=== PATIENT | female | born 1985 | race African-American/Black ===

== ENCOUNTER 2018-02-03 10:32 | Emergency (ER) | payer BC ==
[2018-02-03] MEDS ORDERED: NORMAL SALINE 1000 ML 1,000 ML IV ONE (11:28)
[2018-02-03] MEDS ORDERED: ONDANSETRON HCL INJ/PF 4 MG/2 ML SDV IV ONE (11:28)
--- NOTE | 2018-02-03 11:30 | ER Document Report ---
ED Medical Screen (RME) - General Chief Complaint: Vomiting Stated Complaint: VOMITING Time Seen by Provider: 02/03/18 11:24 Notes: a [id number] female presents emergency department stating that she is 7 weeks based off of urine test and is having vomiting and cramping lower abdominal pain. Patient states that she has had hyperemesis in 2 of her prior pregnancies. She feels dehydrated. Denies any vaginal bleeding or dysuria. TRAVEL OUTSIDE OF THE [place] IN LAST 30 DAYS: No - Related Data Allergies/Adverse Reactions: No Known Allergies Allergy (Unverified 02/03/18 10:37) Past Medical History - General Information source: Patient - Social History Chew tobacco use (# tins/day): No Frequency of alcohol use: None Drug Abuse: None Renal/ Medical History: Denies: Hx Peritoneal Dialysis Review of Systems - Review of Systems Gastrointestinal: See HPI Genitourinary: See HPI Female Genitourinary: See HPI Physical Exam - Vital signs Vitals: Temp Pulse Resp BP Pulse Ox 98.9 F 67 16 117/71 100 02/03/18 10:38 02/03/18 10:38 02/03/18 10:38 02/03/18 10:38 02/03/18 10:38 - Notes Notes: Alert, no acute distress Abdomen: Soft, nontender, nondistended Mouth: Oral mucosa is moist Course - Vital Signs Vital signs: Temp Pulse Resp BP Pulse Ox 98.9 F 67 16 117/71 100 02/03/18 10:38 02/03/18 10:38 02/03/18 10:38 02/03/18 10:38 02/03/18 10:38
[2018-02-03 12:40] LABS: APPEARANCE,URINE SLIGHTLY-CLOUDY; BILIRUBIN,URINE NEGATIVE (NEGATIVE); COLOR,URINE AMBER; GLUCOSE, URINE NEGATIVE (NEGATIVE); KETONES,URINE 80 mg/dL (NEGATIVE); LEUKOCYTE ESTERASE,URINE NEGATIVE (NEGATIVE); NITRITE,URINE NEGATIVE (NEGATIVE); PROTEIN,URINE 30 mg/dL (NEGATIVE); URINE SPECIFIC GRAVITY 1.035
[2018-02-03 12:48] LABS: ABSOLUTE EOSINOPHILS # (AUTO) 0.1 10^3/uL (0.0-0.6); ABSOLUTE MONOCYTES (AUTO) 0.5 10^3/uL (0.1-1.4); ABSOLUTE NEUT (AUTO) 3.3 10^3/uL (1.7-8.2); BASOPHILS % (AUTO) 0.7 % (0-2); HEMATOCRIT 41.3 % (36.0-47.0); HEMOGLOBIN 14.1 g/dL (12.0-15.5); LYMPHOCYTES % (AUTO) 34.1 % (13-45); MEAN CORPUSCULAR HEMOGLOBIN 30.1 pg (27.0-33.4); MEAN CORPUSCULAR HGB CONC 34.2 g/dL (32.0-36.0); MEAN CORPUSCULAR VOLUME 88 fl (80-97); PLATELET COUNT 281 10^3/uL (150-450); RED CELL DISTRIBUTION WIDTH 13.3 % (11.5-14.0); SEGMENTED NEUTROPHILS % (AUTO) 55.2 % (42-78); TOTAL CELLS COUNTED % (AUTO) 100 %
[2018-02-03 13:01] LABS: ALANINE AMINOTRANSFERASE 19 U/L (9-52); ALBUMIN 4.8 g/dL (3.5-5.0); ALKALINE PHOSPHATASE 60 U/L (38-126); ANION GAP 12 (5-19); ASPARTATE AMINO TRANSFERASE 16 U/L (14-36); BILIRUBIN,DIRECT 0.3 mg/dL (0.0-0.4); BILIRUBIN,TOTAL 1.2 mg/dL (0.2-1.3); BLOOD UREA NITROGEN 9 mg/dL (7-20); CALCIUM 9.9 mg/dL (8.4-10.2); CARBON DIOXIDE 23 mmol/L (22-30); CHLORIDE 103 mmol/L (98-107); GLUCOSE 88 mg/dL (75-110); SODIUM 137.7 mmol/L (137-145); TOTAL PROTEIN 8.1 g/dL (6.3-8.2)
--- NOTE | 2018-02-03 13:23 | RADIOLOGY REPORT (SQ) ---
EXAM DESCRIPTION: U/S OB TRANSVAG W/DOPPLER COMPLETED DATE/TIME: 02/03/2018 12:57 pm REASON FOR STUDY: cramping lower abd pain, r/o ectopic COMPARISON: None. TECHNIQUE: Endovaginal static and realtime grayscale images acquired of the pelvis. Additional selec fabiano spectral and color Doppler images recorded. All images stored on PACs. C12/11/2017 CLINICAL DATES: Estimated age 7 weeks 5 days based on last menses LIMITATIONS: Nonvisualization left adnexa due to bowel gas and limited acoustic window FINDINGS: FETUS: Single Living intrauterine . ULTRASOUND EGA: 6 weeks 1 day ULTRASOUND PATEL: 09/28/2018 EFW: Not applicable less than 20 weeks. CRL: 0.47 cm FHR: 105 beats per minute. SURVEY: Too early to assess. AMNIOTIC FLUID: Adequate amount. PLACENTA: Not yet developed due to early gestation. SUBCHORIONIC BLEED: No SIZE OF BLEED: Not applicable. UTERUS: No masses. No anomalies. Uterus is 10 x 6 x 7 cm in size CERVICAL LENGTH: 3.5 cm in length Closed. RIGHT ADNEXA: Normal ovary with normal vascular flow. Right ovary 2.4 x 2.1 x 1.7 cm in size. No adnexal free fluid. No adnexal masses. LEFT ADNEXA: Not well seen due to adnexal bowel gas. FREE FLUID: None. OTHER: No other significant finding. IMPRESSION: LIVING INTRAUTERINE . EGA 6 weeks 1 day Trimester of : First - 0 to 13 weeks. TECHNICAL DOCUMENTATION: JOB ID: [id number] [employer]- All Rights Reserved Reading location - IP/workstation name: [email or web address]
[2018-02-03] MEDS ORDERED: DEXTROSE 5%-1/2 NORMAL SALINE 500 ML IV ONE (13:55)
[2018-02-03] MEDS ORDERED: PYRIDOXINE HCL 50 MG TABLET PO ONE (13:56)
--- NOTE | 2018-02-03 13:59 | ER Document Report ---
ED General - General Chief Complaint: Vomiting Stated Complaint: VOMITING Time Seen by Provider: 02/03/18 11:24 TRAVEL OUTSIDE OF THE [place] IN LAST 30 DAYS: No - HPI Patient complains to provider of: Nausea vomiting Onset: Other - This 32-year-old female presents for evaluation of persistent vomiting in the setting of . She has a history of previous episodes of hyperemesis gravidarum which twice has required her to be hospitalized in the past. She states that she is used her standard home medications including Zofran as well as likely just and Phenergan without any improvement in her symptoms. She is only been able to sip small volumes of fluids has not been able to keep anything down making her concerned she is getting dehydrated. - Related Data Allergies/Adverse Reactions: No Known Allergies Allergy (Unverified 02/03/18 10:37) Past Medical History - General Information source: Patient - Social History Smoking Status: Never Smoker Chew tobacco use (# tins/day): No Frequency of alcohol use: None Drug Abuse: None Family History: None Patient has suicidal ideation: No Patient has homicidal ideation: No Renal/ Medical History: Denies: Hx Peritoneal Dialysis Review of Systems - Review of Systems -: Yes All other systems reviewed and negative Physical Exam - Vital signs Vitals: Temp Pulse Resp BP Pulse Ox 98.9 F 67 16 117/71 100 02/03/18 10:38 02/03/18 10:38 02/03/18 10:38 02/03/18 10:38 02/03/18 10:38 Interpretation: Normal - General General appearance: Appears well, Alert - HEENT Head: Normocephalic, Atraumatic Eyes: Normal Pupils: PERRL - Respiratory Respiratory status: No respiratory distress Chest status: Nontender Breath sounds: Normal Chest palpation: Normal - Cardiovascular Rhythm: Regular Heart sounds: Normal auscultation Murmur: No - Abdominal Inspection: Normal Distension: No distension Bowel sounds: Normal Tenderness: Nontender Organomegaly: No organomegaly - Back Back: Normal, Nontender - Extremities General upper extremity: Normal inspection, Nontender, Normal color, Normal ROM, Normal temperature General lower extremity: Normal inspection, Nontender, Normal color, Normal ROM, Normal temperature, Normal weight bearing. No: Georges's sign - Neurological Neuro grossly intact: Yes Cognition: Normal Orientation: AAOx4 [place] Coma Scale Eye Opening: Spontaneous Tc Coma Scale Verbal: Oriented [place] Coma Scale Motor: Obeys Commands [place] Coma Scale Total: 15 Speech: Normal Motor strength normal: LUE, RUE, LLE, RLE Sensory: Normal - Psychological Associated symptoms: Normal affect, Normal mood - Skin Skin Temperature: Warm Skin Moisture: Dry Skin Color: Normal Course - Re-evaluation Re-evalutation: This woman with a past medical history significant for hyperemesis gravidarum in the past requiring hospitalization. She through triage had labs ordered as well as antiemedics ordered and fluids initiated. On evaluation the patient is a benign abdominal examination. She does demonstrate some ketosis in her urine. Suggested that she could be developing dehydration though she otherwise is well-appearing with stable vital signs. She was encouraged to try to drink in the emergency department after the administration of antiemetics and she had the beverage sit next to her. States she did not really feel like drinking anything. She was given extra fluids thereafter, again she was encouraged to try and drink. She had no active episodes of emesis under my care in the emergency department and after a period of observation it was deemed appropriate for her to undergo discharge. We did discuss appropriate use of antiemetics in and the safe algorithm for the use thereof, she is to take that likely just as directed followed thereafter as spelled out in her discharge instructions per the recommendation of a cog. At the time of discharge her abdominal examination was benign she was well- appearing and able to tolerate p.o. - Vital Signs Vital signs: Temp Pulse Resp BP Pulse Ox 98.4 F 65 20 112/63 100 02/03/18 16:50 02/03/18 16:50 02/03/18 16:50 02/03/18 16:50 02/03/18 16:50 - Laboratory Result Diagrams: 02/03/18 12:34 02/03/18 12:34 Laboratory results interpreted by me: 02/03/18 02/03/18 12:08 12:34 Beta HCG, Quant 54488.00 H Urine Protein 30 H Urine Ketones 80 H Urine Urobilinogen 2.0 H Discharge - Discharge Clinical Impression: Hyperemesis, Nausea Vomiting Qualifiers: Vomiting type: unspecified Vomiting Intractability: non-intractable Nausea presence: with nausea Qualified Code(s): R11.2 - Nausea with vomiting, unspecified Condition: Good Disposition: HOME, SELF-CARE Additional Instructions: You were seen today in the emergency department for your recurrent vomiting. You had evaluation including labs and ultrasound etc. Your ultrasound shows a 6-week . You should use diclegis or Unisom and B6 every day. Do not miss any days. If you continue to have vomiting thereafter you can use diphenhydramine (Benadryl) 3 times daily as needed 25 mg. If that does not work you can use the Phenergan suppositories as needed knowing that they may make you sleepy. You should then use Zofran if none of these medications have worked for your nausea. Call your chemical manager tomorrow for an appointment. Return to the emergency room in case of worsening fevers, chills, abdominal pain or inability to eat and drink.
[2018-02-03 16:57] VITALS: BP 112/63
== END 2018-02-03 16:57 | disposition home or self-care (01) ==
LOC: ER 10:32
DX: O21.0 Mild hyperemesis gravidarum (principal); Z3A.01 Less than 8 weeks gestation of pregnancy
CPT/HCPCS: 99284; 96361; 96374; 86900; 86901; 36415; 84702; 85025; 80053; 81001; 76817; 93976; J3490; J2405; J7070; J7030

== ENCOUNTER 2018-02-04 16:25 | Observation (INO) | payer BC ==
[2018-02-04] MEDS ORDERED: DEXTROSE 50%-WATER 25 GM/50 ML DISP.SYRIN IV PRN ×2 (16:54)
[2018-02-04] MEDS ORDERED: GLUCAGON,HUMAN RECOMB 1 MG INJ SUBCUT PRN (16:54)
[2018-02-04] MEDS ORDERED: DEXTROSE 40% GEL 15 GM TUBE PO PRN ×2 (16:54)
[2018-02-04] MEDS ORDERED: ONDANSETRON HCL INJ/PF 4 MG/2 ML SDV IV ONE (17:30)
[2018-02-04] MEDS ORDERED: DEXAMETHASONE SOD PHOSPHATE INJ 4 MG/1 ML VIAL IV ONE (17:30)
[2018-02-04] MEDS ORDERED: PROMETHAZINE HCL INJ 25 MG/1 ML VIAL IV ONE (17:30)
[2018-02-04] MEDS ORDERED: RINGERS SOLUTION,LACTATED 1,000 ML IV ONE ×2 (17:30→18:00)
[2018-02-04] MEDS ORDERED: PROMETHAZINE HCL INJ 25 MG/1 ML VIAL IV PRN (18:03)
[2018-02-04] MEDS ORDERED: METOCLOPRAMIDE HCL INJ/PF 10 MG/2 ML SDV IV PRN (18:04)
[2018-02-04 18:06] LABS: HEMATOCRIT 38.1 % (36.0-47.0); HEMOGLOBIN 13.2 g/dL (12.0-15.5); MEAN CORPUSCULAR HEMOGLOBIN 30.1 pg (27.0-33.4); MEAN CORPUSCULAR HGB CONC 34.7 g/dL (32.0-36.0); MEAN CORPUSCULAR VOLUME 87 fl (80-97); PLATELET COUNT 237 10^3/uL (150-450); RED BLOOD COUNT 4.41 10^6/uL (3.72-5.28)
[2018-02-04 18:51] LABS: ALANINE AMINOTRANSFERASE 11 U/L (9-52); ALBUMIN 4.3 g/dL (3.5-5.0); ALKALINE PHOSPHATASE 53 U/L (38-126); ANION GAP 15 (5-19); ASPARTATE AMINO TRANSFERASE 13 U/L (14-36); BILIRUBIN,DIRECT 0.3 mg/dL (0.0-0.4); BILIRUBIN,TOTAL 1.4 mg/dL (0.2-1.3); BLOOD UREA NITROGEN 8 mg/dL (7-20); CALCIUM 9.3 mg/dL (8.4-10.2); CARBON DIOXIDE 20 mmol/L (22-30); CHLORIDE 104 mmol/L (98-107); GLUCOSE 78 mg/dL (75-110); POTASSIUM 4.2 mmol/L (3.6-5.0); SODIUM 138.7 mmol/L (137-145); TOTAL PROTEIN 7.3 g/dL (6.3-8.2)
--- NOTE | 2018-02-04 21:51 | PDOC H&P ---
History of Present Illness Admission Date/PCP: 02/04/18 16:25 Patient complains of: persistant nausea and vomitting History of Present Illness: TORSTEN FORMAN is a 32 year old with an intrauterine at 6-3/7 weeks. Patient was seen in the office today complaining of persistent nausea and vomiting. Patient stated that she has lost 10 pounds. Patient stated that she had an extensive nausea and vomiting with her first and lost 40 po unds. Past Medical History Gynecological Infection: No 1 Delivery: Spontaneous Vaginal Delivery 2 Delivery: Spontaneous Vaginal Delivery Past Surgical History Past Surgical History: Reports: None Social History Smoking Status: Never Smoker Frequency of Alcohol Use: None Hx Recreational Drug Use: No Drugs: None Hx Prescription Drug Abuse: No Family History Family History: Reviewed & Not Pertinent Parental Family History Reviewed: No - N/A Children Family History Reviewed: Yes Sibling(s) Family History Reviewed.: No Medication/Allergy Home Medications: No Home Medications 02/04/18 Allergies/Adverse Reactions: No Known Allergies Allergy (Unverified 02/03/18 10:37) Physical Exam - Physical Exam Vital Signs: Temp Pulse Resp BP Pulse Ox 99.0 F 67 15 109/70 99 02/04/18 16:41 02/04/18 16:41 02/04/18 16:41 02/04/18 16:41 02/04/18 16:41 General appearance: PRESENT: no acute distress Respiratory exam: PRESENT: clear to auscultation julian Cardiovascular exam: PRESENT: RRR GI/Abdominal exam: PRESENT: normal bowel sounds, soft Extremities exam: ABSENT: calf tenderness, clubbing, full ROM, joint swelling, pedal edema, tenderness, +1 edema, +2 edema, other Result Laboratory Results: 02/04/18 17:25 02/04/18 17:25 02/04/18 02/04/18 17:25 17:25 WBC 6.0 RBC 4.41 Hgb 13.2 Hct 38.1 MCV 87 MCH 30.1 MCHC 34.7 RDW 13.0 Plt Count 237 Sodium 138.7 Potassium 4.2 Chloride 104 Carbon Dioxide 20 L Anion Gap 15 BUN 8 Creatinine 0.51 L Est GFR ( Amer) > 60 Est GFR (Non-Af Amer) > 60 Glucose 78 Calcium 9.3 Total Bilirubin 1.4 H AST 13 L ALT 11 Alkaline Phosphatase 53 Total Protein 7.3 Albumin 4.3 Assessment & Plan - Diagnosis (1) Hyperemesis Is this a current diagnosis for this admission?: Yes - Time Critical Time spent with patient: Less than 15 minutes - Plan Summary Plan Summary: 1. IV fluids 2. Antiemetics 3. Advance diet slowly
[2018-02-05] MEDS ORDERED: ONDANSETRON 4 MG TAB.RAPDIS PO PRN (12:48)
--- NOTE | 2018-02-06 01:33 | PDOC PROGRESS REPORT ---
Subjective Progress Note for:: 02/05/18 Subjective:: doing better. no vomiting since yesterday but still having nausea Reason For Visit: HYPEREMESIS Physical Exam - Physical Exam Vital Signs: Temp Pulse Resp BP Pulse Ox 98.3 F 55 L 17 110/55 L 99 02/05/18 23:21 02/05/18 23:21 02/05/18 23:21 02/05/18 23:21 02/05/18 23:21 General appearance: PRESENT: no acute distress, cooperative Result Laboratory Results: 02/04/18 17:25 02/04/18 17:25 Assessment & Plan - Diagnosis (1) Hyperemesis Is this a current diagnosis for this admission?: Yes (2) Nausea Is this a current diagnosis for this admission?: Yes (3) Vomiting Qualifiers: Vomiting type: unspecified Vomiting Intractability: unspecified Nausea presence: unspecified Qualified Code(s): R11.10 - Vomiting, unspecified Is this a current diagnosis for this admission?: Yes (4) Qualifiers: Weeks of gestation: less than 8 weeks Qualified Code(s): Z3A.01 - Less than 8 weeks gestation of Is this a current diagnosis for this admission?: Yes - Time Time Spent with patient: Less than 15 minutes Anticipated discharge: Home Within: within 24 hours - Inpatient Certification Based on my medical assessment, after consideration of the patient's comorbidities, presenting symptoms, or acuity I expect that the services needed warrant INPATIENT care.: Yes I certify that my determination is in accordance with my understanding of Medicare's requirements for reasonable and necessary INPATIENT services [42 CFR 412.3e].: Yes Medical Necessity: Need Close Monitoring Due to Risk of Patient Decompensation, Need For IV Fluids - Plan Summary Plan Summary: will continue antiemetics and do food challenge and po meds now. If tolerates will discharge in AM.
--- NOTE | 2018-02-06 07:42 | PDOC DISCHARGE SUMMARY ---
General - Admit/Disc Date/PCP Admission Date/Primary Care Provider: 02/04/18 16:25 Discharge Date: 02/06/18 - Discharge Diagnosis (1) Hyperemesis Is this a current diagnosis for this admission?: Yes (2) Nausea Is this a current diagnosis for this admission?: Yes (3) Vomiting Is this a current diagnosis for this admission?: Yes (4) Is this a current diagnosis for this admission?: Yes - Additional Information Home Medications: No Home Medications 02/04/18 History of Present Illness History of Present Illness: TORSTEN FORMAN is a 32 year old female Hospital Course Hospital Course: antiemetics given and pt responded well. food challenge successful. Physical Exam - Physical Exam Vital Signs: Temp Pulse Resp BP Pulse Ox 98.1 F 67 17 105/56 L 100 02/06/18 03:16 02/06/18 04:05 02/06/18 03:16 02/06/18 04:05 02/06/18 03:16 Intake & Output 02/05/18 02/06/18 02/07/18 06:59 06:59 06:59 Weight 90.4 kg General appearance: PRESENT: no acute distress, cooperative GI/Abdominal exam: PRESENT: soft Result Laboratory Results: 02/04/18 17:25 02/04/18 17:25 Plan Discharge Plan: discharge home with kalyani. BRAT diet and emphasis on hydration. to f/u in office next week. Time Spent: Less than 30 Minutes
[2018-02-06 08:27] VITALS: BP 105/58
== END 2018-02-06 10:10 | disposition home or self-care (01) ==
LOC: 2N 16:25
PROVIDERS: ADMIT Obstetrics & Gynecology; ATTEND Obstetrics & Gynecology
DX: O21.0 Mild hyperemesis gravidarum (principal); Z3A.01 Less than 8 weeks gestation of pregnancy
CPT/HCPCS: 36415; 85027; 80053; G0378 ×3; G0379; J1100; S0119; J2765; J2550; J2405; J7120

== ENCOUNTER 2018-02-15 10:52 | Emergency (ER) | payer BC ==
[2018-02-15 11:14] VITALS: BP 109/74
[2018-02-15] MEDS ORDERED: PROMETHAZINE HCL INJ 25 MG/1 ML VIAL IV ONE (12:44)
[2018-02-15] MEDS ORDERED: RINGERS SOLUTION,LACTATED 1,000 ML IV ONE (12:44)
--- NOTE | 2018-02-15 12:46 | ER Document Report ---
ED Medical Screen (RME) - General Chief Complaint: Vomiting Stated Complaint: POSSIBLE DEHYDRATION Time Seen by Provider: 02/15/18 12:30 Notes: RAPID MEDICAL EVALUATION DISCLOSURE I have seen this patient as part of a Rapid Medical Evaluation and, if applicable, placed any initially appropriate orders. The patient will be seen and fully evaluated, including a full history and physical exam, by a provider (in Main ED or Fast Track) when a room becomes available. 32-year-old female approximately 8 weeks gestation here with complaints of continued nausea and vomiting over the past few weeks. She has been taking Diclegis and Zofran but this has not helped. She was prescribed Phenergan however she did not get it filled because it was sent to a pharmacy she does not normally deal with. She went to see her HAZMAT TRUCK DRIVER today and was sent here for IV fluids. She denies any abdominal pain except when she is vomiting she has some epigastric pain but not otherwise. EXAM CTAB RRR Minimal epigastric TTP but no lower quadrant TTP TRAVEL OUTSIDE OF THE [place] IN LAST 30 DAYS: No - Related Data Allergies/Adverse Reactions: No Known Allergies Allergy (Verified 02/15/18 11:09) Past Medical History - Social History Chew tobacco use (# tins/day): No Frequency of alcohol use: None Drug Abuse: None Renal/ Medical History: Denies: Hx Peritoneal Dialysis Physical Exam - Vital signs Vitals: Pulse Resp BP Pulse Ox 105 H 16 109/74 99 02/15/18 11:12 02/15/18 11:12 02/15/18 11:12 02/15/18 11:12 Course - Vital Signs Vital signs: Temp Pulse Resp BP Pulse Ox 105 H 16 109/74 99 02/15/18 11:12 02/15/18 11:12 02/15/18 11:12 02/15/18 11:12
[2018-02-15] MEDS ORDERED: METOCLOPRAMIDE HCL INJ/PF 10 MG/2 ML SDV IV ONE (13:45)
--- NOTE | 2018-02-15 14:28 | ER Document Report ---
ED General - General Chief Complaint: Vomiting Stated Complaint: POSSIBLE DEHYDRATION Time Seen by Provider: 02/15/18 12:30 Notes: 32-year-old female approximately 8 weeks gestation here with complaints of continued nausea and vomiting over the past few weeks. She has been taking Diclegis and Zofran but this has not helped. She was prescribed Phenergan however she did not get it filled because it was sent to a pharmacy she does not normally deal with. She went to see her ASIC VERIFICATION ENGINEER today and was sent here for IV fluids. She denies any abdominal pain except when she is vomiting she has some epigastric pain but not otherwise. TRAVEL OUTSIDE OF THE [place] IN LAST 30 DAYS: No - Related Data Allergies/Adverse Reactions: No Known Allergies Allergy (Verified 02/15/18 11:09) Past Medical History - Social History Smoking Status: Never Smoker Chew tobacco use (# tins/day): No Frequency of alcohol use: None Drug Abuse: None Family History: Reviewed & Not Pertinent Patient has suicidal ideation: No Patient has homicidal ideation: No Renal/ Medical History: Denies: Hx Peritoneal Dialysis Review of Systems - Review of Systems Notes: See history of present illness for pertinent positive review of systems; otherwise all review of systems have been reviewed and are negative Physical Exam - Vital signs Vitals: Pulse Resp BP Pulse Ox 105 H 16 109/74 99 02/15/18 11:12 02/15/18 11:12 02/15/18 11:12 02/15/18 11:12 - Notes Notes: PHYSICAL EXAMINATION: GENERAL: Well-appearing and in no acute distress. HEAD: Atraumatic, normocephalic. EYES: Pupils equal round and reactive to light, extraocular movements intact, sclera anicteric, conjunctiva are normal. ENT: nares patent, oropharynx clear without exudates. Moist mucous membranes. NECK: Normal range of motion, supple without lymphadenopathy LUNGS: CTAB and equal. No wheezes rales or rhonchi. HEART: Regular rate and rhythm without murmurs ABDOMEN: Soft, no tenderness. No facial grimacing/wincing upon palpation. No guarding, no rebound. EXTREMITIES: Normal range of motion, no pitting edema. No cyanosis. NEUROLOGICAL: Cranial nerves grossly intact. Normal sensory/motor exams. PSYCH: Normal mood, normal affect. SKIN: Warm, Dry, normal turgor, no rashes or lesions noted Course - Re-evaluation Re-evalutation: 02/15/18 19:43 MEDICAL DECISION MAKING: Patient is received IV fluids and antiemetics for hyperemesis She has had no further vomiting so we will discharge at this time Prescription Phenergan tablets and suppositories Instructed follow-up ASIC VERIFICATION ENGINEER next day or few Patient understands and agrees to the plan of care - Vital Signs Vital signs: Temp Pulse Resp BP Pulse Ox 105 H 16 109/74 99 02/15/18 11:12 02/15/18 11:12 02/15/18 11:12 02/15/18 11:12 Discharge - Discharge Clinical Impression: Nausea & vomiting Qualifiers: Vomiting type: unspecified Vomiting Intractability: non-intractable Qualified Code(s): R11.2 - Nausea with vomiting, unspecified Condition: Good Disposition: HOME, SELF-CARE Additional Instructions: Use the prescribed medication as needed for your symptoms. You were seen in the emergency department at [facility]. If you were given any sedating medications, be sure not to operate heavy machinery (example - driving) and be sure you are not too sedated to walk appropriately. Please followup with your primary ASIC VERIFICATION ENGINEER physician in the next few days for further management/evaluation. Please return to the emergency department for worsening of symptoms or any symptom that you deem to be concerning or life-threatening. Thank you for allowing us to be part of your care. Prescriptions: Promethazine HCl [Phenergan 25 mg Supp.rect] 25 mg [place] Q4HP PRN #12 supp.rect PRN Reason: Promethazine HCl [Phenergan 25 mg Tablet] 1 tab PO Q6H PRN #15 tablet PRN Reason: Referrals: VANNA SOLER MD [Primary Care Provider] - Follow up as needed
== END 2018-02-15 14:39 | disposition home or self-care (01) ==
LOC: ER 10:52
DX: O21.9 Vomiting of pregnancy, unspecified (principal); Z3A.08 8 weeks gestation of pregnancy
CPT/HCPCS: 99284; 96361; 96374; J2550; J7120

== ENCOUNTER 2018-02-24 13:00 | Emergency (ER) | payer BC ==
[2018-02-24] MEDS ORDERED: ONDANSETRON HCL INJ/PF 4 MG/2 ML SDV IV ONE (14:36)
[2018-02-24] MEDS ORDERED: DEXTROSE 5%-1/2 NORMAL SALINE 1,000 ML IV ONE (14:36)
[2018-02-24] MEDS ORDERED: NORMAL SALINE 1000 ML 1,000 ML IV ONE (14:36)
--- NOTE | 2018-02-24 14:37 | ER Document Report ---
ED GI/ - General Chief Complaint: Vomiting Stated Complaint: VOMITING, BACK PAIN Time Seen by Provider: 02/24/18 14:28 Notes: 32-year-old female patient emergency department chief complaint of intractable vomiting. Patient states that she is approximately 9-10 weeks . Cannot keep anything down. Experiences throughout her before. No other major complaints at this time. No abdominal pain, fever, chills, sweats or othe r issues. TRAVEL OUTSIDE OF THE [place] IN LAST 30 DAYS: No - HPI Patient complains to provider of: Vomiting Timing/Duration: Gradual, Constant Quality of pain: No pain Severity at maximum: Mild Severity in ED: Mild Pain Level: Denies - Related Data Allergies/Adverse Reactions: No Known Allergies Allergy (Verified 02/24/18 13:01) Past Medical History - General Information source: Patient - Social History Smoking Status: Never Smoker Frequency of alcohol use: None Drug Abuse: None Lives with: Family Family History: Reviewed & Not Pertinent Patient has suicidal ideation: No Patient has homicidal ideation: No Renal/ Medical History: Denies: Hx Peritoneal Dialysis Review of Systems - Review of Systems Notes: Constitutional: denies: Chills, Diaphoresis, Fever, Malaise, Weakness EENT: denies: Eye discharge, Blurred vision, Tearing, Double vision, Nose congestion, Nose discharge, Throat swelling, Mouth pain Cardiovascular: denies: Palpitations, Heart racing, Orthopnea, Dyspnea, Chest pain Respiratory: denies: Cough, Hurts to breathe, Wheezing, Shortness of breath Gastrointestinal: denies: Abdominal pain, Diarrhea,. Positive for nausea and vomiting. Genitourinary: denies: Burning, Dysuria, Discharge, Frequency, Flank pain, Hematuria. Positive for . Musculoskeletal: denies: Joint pain, Joint swelling, Muscle pain, Muscle stiffness, back pain Hematologic/Lymphatic: denies: Anemia, Easy bleeding, Easy bruising, Blood clots Neurological/Psychological: denies: Confusion, Dementia, Depression, Loss of consciousness Skin: No lesions, no masses, no skin breakdown, no abscesses Physical Exam - Vital signs Vitals: Temp Pulse Resp BP Pulse Ox 98.8 F 52 L 18 135/77 H 99 02/24/18 13:15 02/24/18 13:15 02/24/18 13:15 02/24/18 13:15 02/24/18 13:15 Interpretation: Normal - General General appearance: Appears well, Alert - HEENT Head: Normocephalic, Atraumatic Eyes: Normal Pupils: PERRL Tympanic membrane: Normal Nasal: Normal Mouth/Lips: Normal Mucous membranes: Other - Mildly dry buccal mucosa. Pharynx: Normal - Respiratory Respiratory status: No respiratory distress Chest status: Nontender Breath sounds: Normal Chest palpation: Normal - Cardiovascular Rhythm: Regular Heart sounds: Normal auscultation Murmur: No - Abdominal Inspection: Normal Distension: No distension Bowel sounds: Normal Tenderness: Nontender Organomegaly: No organomegaly - Back Back: Normal, Nontender - Extremities General upper extremity: Normal inspection, Nontender, Normal color, Normal ROM, Normal temperature General lower extremity: Normal inspection, Nontender, Normal color, Normal ROM, Normal temperature, Normal weight bearing. No: Georges's sign - Neurological Neuro grossly intact: Yes Cognition: Normal Orientation: AAOx4 Tc Coma Scale Eye Opening: Spontaneous [place] Coma Scale Verbal: Oriented Tc Coma Scale Motor: Obeys Commands [place] Coma Scale Total: 15 Speech: Normal Motor strength normal: LUE, RUE, LLE, RLE Sensory: Normal - Psychological Associated symptoms: Normal affect, Normal mood - Skin Skin Temperature: Warm Skin Moisture: Dry Skin Color: Normal Course - Re-evaluation Re-evalutation: 02/24/18 19:56 Laboratory 02/24/18 02/24/18 02/24/18 15:47 15:47 17:32 WBC 8.2 RBC 5.29 H Hgb 15.8 H Hct 45.2 MCV 86 MCH 29.9 MCHC 34.9 RDW 13.3 Plt Count 258 Seg Neutrophils % 60.9 Lymphocytes % 24.8 Monocytes % 13.5 H Eosinophils % 0.3 Basophils % 0.5 Absolute Neutrophils 5.0 Absolute Lymphocytes 2.0 Absolute Monocytes 1.1 Absolute Eosinophils 0.0 Absolute Basophils 0.0 Sodium Cancelled 136.3 L Potassium Cancelled 3.2 L Chloride Cancelled 101 Carbon Dioxide Cancelled 23 Anion Gap Cancelled 12 BUN Cancelled 9 Creatinine Cancelled 0.66 Est GFR ( Amer) Cancelled > 60 Est GFR (Non-Af Amer) Cancelled > 60 Glucose Cancelled 97 Calcium Cancelled 9.5 Total Bilirubin Cancelled 1.0 Direct Bilirubin Cancelled 0.5 H Neonat Total Bilirubin Cancelled Not Reportable Neonat Direct Bilirubin Cancelled Not Reportable Neonat Indirect Bili Cancelled Not Reportable AST Cancelled 22 ALT Cancelled 35 Alkaline Phosphatase Cancelled 48 Total Protein Cancelled 7.4 Albumin Cancelled 4.3 02/24/18 19:56 Patient is received 2 L of fluid. No significant evidence of dehydration. Mild hypokalemia. Will advise her to correct that with fresh fruits and vegetables and if not she may require potassium supplementation. Will provide her prescription for that. Patient needs to follow-up with OB. Continue with her current nausea vomiting medications. Will DC at this time in stable condition. Patient refused to give urine. Of note, patient is not tachycardic, not hyp otensive, not febrile, not septic appearing. Will discharge at this time in stable condition. 02/24/18 19:57 - Vital Signs Vital signs: Temp Pulse Resp BP Pulse Ox 98.8 F 52 L 18 135/77 H 99 02/24/18 13:15 02/24/18 13:15 02/24/18 13:15 02/24/18 13:15 02/24/18 13:15 - Laboratory Result Diagrams: 02/24/18 15:47 02/24/18 17:32 Laboratory results interpreted by me: 02/24/18 02/24/18 15:47 17:32 RBC 5.29 H Hgb 15.8 H Monocytes % 13.5 H Sodium 136.3 L Potassium 3.2 L Direct Bilirubin 0.5 H Discharge - Discharge Clinical Impression: Hyperemesis gravidarum Condition: Good Disposition: HOME, SELF-CARE Instructions: Hyperemesis Gravidarum ([facility]), Hypokalemia ([facility]) Additional Instructions: Continue to follow your [employer] as advised. Take your medications as prescribed. Return for any worsening symptoms or concerns. Prescriptions: Potassium Chloride 10 meq PO DAILY 30 Days #30 tablet.er Forms: Return to Work Referrals: VANNA SOLER MD [Primary Care Provider] - Follow up in 3-5 days
[2018-02-24 16:09] LABS: ABSOLUTE MONOCYTES (AUTO) 1.1 10^3/uL (0.1-1.4); BASOPHILS % (AUTO) 0.5 % (0-2); EOSINOPHILS % (AUTO) 0.3 % (0-6); HEMATOCRIT 45.2 % (36.0-47.0); HEMOGLOBIN 15.8 g/dL (12.0-15.5); LYMPHOCYTES % (AUTO) 24.8 % (13-45); MEAN CORPUSCULAR HEMOGLOBIN 29.9 pg (27.0-33.4); MEAN CORPUSCULAR HGB CONC 34.9 g/dL (32.0-36.0); MEAN CORPUSCULAR VOLUME 86 fl (80-97); MONOCYTES % (AUTO) 13.5 % (3-13); PLATELET COUNT 258 10^3/uL (150-450); RED BLOOD COUNT 5.29 10^6/uL (3.72-5.28); RED CELL DISTRIBUTION WIDTH 13.3 % (11.5-14.0); SEGMENTED NEUTROPHILS % (AUTO) 60.9 % (42-78); TOTAL CELLS COUNTED % (AUTO) 100 %; WHITE BLOOD COUNT 8.2 10^3/uL (4.0-10.5)
[2018-02-24 18:10] LABS: ALANINE AMINOTRANSFERASE 35 U/L (9-52); ALBUMIN 4.3 g/dL (3.5-5.0); ALKALINE PHOSPHATASE 48 U/L (38-126); ANION GAP 12 (5-19); ASPARTATE AMINO TRANSFERASE 22 U/L (14-36); BILIRUBIN,DIRECT 0.5 mg/dL (0.0-0.4); BLOOD UREA NITROGEN 9 mg/dL (7-20); CALCIUM 9.5 mg/dL (8.4-10.2); CARBON DIOXIDE 23 mmol/L (22-30); CHLORIDE 101 mmol/L (98-107); GLUCOSE 97 mg/dL (75-110); POTASSIUM 3.2 mmol/L (3.6-5.0); SODIUM 136.3 mmol/L (137-145); TOTAL PROTEIN 7.4 g/dL (6.3-8.2)
[2018-02-24 20:08] VITALS: BP 119/58
== END 2018-02-24 20:05 | disposition home or self-care (01) ==
LOC: ER 13:00
DX: O21.0 Mild hyperemesis gravidarum (principal); Z3A.09 9 weeks gestation of pregnancy
CPT/HCPCS: 99283; 96361; 96374; 36415; 85025; 80053; J2405; J7030

== ENCOUNTER 2018-03-01 10:40 | Inpatient (IN) | payer BC ==
[2018-03-01] MEDS ORDERED: ONDANSETRON HCL INJ/PF 4 MG/2 ML SDV ONE (11:08)
[2018-03-01] MEDS ORDERED: RINGERS SOLUTION,LACTATED 1,000 ML IV ONE (11:45)
[2018-03-01] MEDS: RINGERS SOLUTION,LACTATED 1,000 ML IV PRN ×2 (12:57→20:00)
[2018-03-01] MEDS: PROMETHAZINE HCL INJ 25 MG/1 ML VIAL IV PRN (17:46)
[2018-03-02] MEDS: RINGERS SOLUTION,LACTATED 1,000 ML IV PRN (03:27)
[2018-03-02] MEDS: ONDANSETRON HCL INJ/PF 4 MG/2 ML SDV IV PRN (08:06)
--- NOTE | 2018-03-02 10:28 | PDOC PROGRESS REPORT ---
Subjective Progress Note for:: 03/02/18 Subjective:: pt feeling better but still nauseated Reason For Visit: HYPEREMESIS AT 10 WEEKS Physical Exam - Physical Exam Vital Signs: Temp Pulse Resp BP Pulse Ox 98.3 F 65 20 103/64 100 03/02/18 07:23 03/02/18 07:23 03/02/18 07:23 03/02/18 07:23 03/02/18 07:23 Intake & Output 03/01/18 03/02/18 03/03/18 06:59 06:59 06:59 Intake Total 2100 Balance 2100 Weight 83.5 kg General appearance: PRESENT: no acute distress Respiratory exam: PRESENT: clear to auscultation julian Cardiovascular exam: PRESENT: RRR - pt tolerating clear liquids, continue with same GI/Abdominal exam: PRESENT: soft Assessment & Plan - Diagnosis (2) Qualifiers: Weeks of gestation: 10 weeks Qualified Code(s): Z3A.10 - 10 weeks gestation of Is this a current diagnosis for this admission?: Yes - Plan Summary Plan Summary: continue clear liquids advance diet in am and if tolerated d/c
[2018-03-02] MEDS ORDERED: ONDANSETRON 4 MG TAB.RAPDIS PO PRN (14:23)
[2018-03-02] MEDS ORDERED: ONDANSETRON 4 MG TAB.RAPDIS ONE (14:25)
[2018-03-03] MEDS ORDERED: ONDANSETRON HCL INJ/PF 4 MG/2 ML SDV IV ONE (10:48)
[2018-03-03] MEDS: ONDANSETRON HCL INJ/PF 4 MG/2 ML SDV IV PRN (10:52)
[2018-03-03] MEDS ORDERED: RINGERS SOLUTION,LACTATED 1,000 ML IV PRN (11:02)
[2018-03-03 12:49] LABS: ALANINE AMINOTRANSFERASE 51 U/L (9-52); ALBUMIN 3.2 g/dL (3.5-5.0); ALKALINE PHOSPHATASE 39 U/L (38-126); ANION GAP 9 (5-19); ASPARTATE AMINO TRANSFERASE 26 U/L (14-36); BILIRUBIN,DIRECT 0.4 mg/dL (0.0-0.4); BILIRUBIN,TOTAL 0.7 mg/dL (0.2-1.3); CALCIUM 8.3 mg/dL (8.4-10.2); CARBON DIOXIDE 25 mmol/L (22-30); CHLORIDE 100 mmol/L (98-107); GLUCOSE 85 mg/dL (75-110); SODIUM 133.7 mmol/L (137-145); TOTAL PROTEIN 5.5 g/dL (6.3-8.2)
[2018-03-03 13:07] LABS: BLOOD UREA NITROGEN < 2 mg/dL (7-20)
[2018-03-03 13:09] LABS: POTASSIUM 2.9 mmol/L (3.6-5.0)
[2018-03-03] MEDS ORDERED: POTASSIUM CHLORIDE 10 MEQ CAPSULE.ER PO ONE ×2 (13:11→15:00)
--- NOTE | 2018-03-03 13:31 | PDOC PROGRESS REPORT ---
Subjective Progress Note for:: 03/03/18 Subjective:: current nausea, reports vomiting last night, does not want to advance diet today and reports unable to drink fluids overnight due to nausea. asking if it's ok to take her own zofran. agrees to restart IVF and get CMP, discussed changing zofran order to be scheduled as give before each meal. she verbalizes understanding that phenergan is PRN Reason For Visit: HYPEREMESIS AT 10 WEEKS Physical Exam - Physical Exam Vital Signs: Temp Pulse Resp BP Pulse Ox 98.9 F 66 16 100/52 L 97 03/03/18 11:22 03/03/18 11:22 03/03/18 11:22 03/03/18 11:22 03/03/18 11:22 Intake & Output 03/02/18 03/03/18 03/04/18 06:59 06:59 06:59 Intake Total 2100 Balance 2100 Weight 83.5 kg 82.9 kg General appearance: PRESENT: no acute distress, cooperative Psychiatric exam: PRESENT: flat affect Additional comments: retching with nothing coming up during rounds Assessment & Plan - Diagnosis (1) Electrolyte abnormality Is this a current diagnosis for this admission?: Yes (2) Hyperemesis gravidarum Is this a current diagnosis for this admission?: Yes - Time Time Spent with patient: Less than 15 minutes Medications reviewed and adjusted accordingly: Yes Anticipated discharge: Home Within: within 24 hours - medications changed: will start diclegis as home med tonight, zofran as scheduled before each meal instead of PRN, start IVF back and begin with banana bag, then LR. Diet: continue clears for now.
--- NOTE | 2018-03-03 13:34 | PDOC PROGRESS REPORT ---
Subjective Progress Note for:: 03/03/18 Reason For Visit: HYPEREMESIS AT 10 WEEKS Physical Exam - Physical Exam Vital Signs: Temp Pulse Resp BP Pulse Ox 98.9 F 66 16 100/52 L 97 03/03/18 11:22 03/03/18 11:22 03/03/18 11:22 03/03/18 11:22 03/03/18 11:22 Intake & Output 03/02/18 03/03/18 03/04/18 06:59 06:59 06:59 Intake Total 2100 Balance 2100 Weight 83.5 kg 82.9 kg Result Laboratory Results: 03/03/18 11:53 03/03/18 11:53 Sodium 133.7 L Potassium 2.9 L* Chloride 100 Carbon Dioxide 25 Anion Gap 9 BUN < 2 L Creatinine 0.33 L Est GFR ( Amer) > 60 Est GFR (Non-Af Amer) > 60 Glucose 85 Calcium 8.3 L Total Bilirubin 0.7 AST 26 ALT 51 Alkaline Phosphatase 39 Total Protein 5.5 L Albumin 3.2 L Assessment & Plan - Diagnosis (1) Electrolyte abnormality Is this a current diagnosis for this admission?: Yes (2) Hyperemesis gravidarum Is this a current diagnosis for this admission?: Yes - Plan Summary Plan Summary: potassium 2.9 banana bag now ready yet, pt receiving LR IV now, potassium po 20mEq ordered-will get 20mEQ in banana bag when ready, recheck in AM
[2018-03-03] MEDS ORDERED: [UNRECOGNIZED DRUG - OTHER] PO SCH (13:45)
[2018-03-03] MEDS ORDERED: DOXYLAMINE SUCCINATE PO SCH (13:45)
[2018-03-03] MEDS ORDERED: VIT B6 PO SCH (13:45)
[2018-03-03] MEDS ORDERED: NORMAL SALINE 1000 ML 1,000 ML with POTASSIUM CHLORIDE 20 MEQ, MAGNESIUM SULFATE 8 MEQ,... IV ONE ×5 (14:00)
[2018-03-03] MEDS: ONDANSETRON HCL INJ/PF 4 MG/2 ML SDV IV SCH (17:15)
[2018-03-03] MEDS ORDERED: NORMAL SALINE 1000 ML 1,000 ML with POTASSIUM CHLORIDE 20 MEQ, MAGNESIUM SULFATE 8 MEQ,... IV SCH ×5 (18:00)
[2018-03-03] MEDS: RINGERS SOLUTION,LACTATED 1,000 ML IV PRN (22:46)
[2018-03-03] MEDS: PROMETHAZINE HCL INJ 25 MG/1 ML VIAL IV PRN (23:21)
[2018-03-04] MEDS: RINGERS SOLUTION,LACTATED 1,000 ML IV PRN (05:33)
[2018-03-04 06:58] LABS: ALANINE AMINOTRANSFERASE 49 U/L (9-52); ALBUMIN 2.7 g/dL (3.5-5.0); ALKALINE PHOSPHATASE 34 U/L (38-126); ANION GAP 6 (5-19); ASPARTATE AMINO TRANSFERASE 26 U/L (14-36); BILIRUBIN,DIRECT 0.3 mg/dL (0.0-0.4); BILIRUBIN,TOTAL 0.7 mg/dL (0.2-1.3); CALCIUM 8.2 mg/dL (8.4-10.2); CARBON DIOXIDE 28 mmol/L (22-30); CHLORIDE 104 mmol/L (98-107); GLUCOSE 79 mg/dL (75-110); POTASSIUM 3.5 mmol/L (3.6-5.0); SODIUM 137.7 mmol/L (137-145); TOTAL PROTEIN 5.1 g/dL (6.3-8.2)
[2018-03-04 07:04] LABS: BLOOD UREA NITROGEN < 2 mg/dL (7-20)
[2018-03-04] MEDS: ONDANSETRON HCL INJ/PF 4 MG/2 ML SDV IV SCH (08:25)
--- NOTE | 2018-03-04 09:17 | PDOC DISCHARGE SUMMARY ---
General - Admit/Disc Date/PCP Admission Date/Primary Care Provider: 03/03/18 16:32 Discharge Date: 03/04/18 - Discharge Diagnosis (2) Is this a current diagnosis for this admission?: Yes (3) Electrolyte abnormality Is this a current diagnosis for this admission?: Yes (4) Nausea Is this a current diagnosis for this admission?: Yes (5) Vomiting Is this a current diagnosis for this admission?: Yes - Additional Information Discharge Diet: Other (Comments) Discharge Activity: Activity As Tolerated, Balance Activity w/Rest, Walk Frequently Prescriptions: Ondansetron HCl/Pf [Zofran Inj/Pf 4 mg/2 ml Sdv] 8 mg PO Q8 10 Days #30 tab Home Medications: Doxylamine Succinate/Vit B6 [Diclegis Dr 10-10 mg Tablet] 1 each PO Q8 #120 tablet.dr 02/06/18 Metoclopramide HCl [Reglan 10 mg Tablet] 1 - 2 tab PO ASDIR PRN 02/15/18 Promethazine HCl [Phenergan 25 mg Supp.rect] 25 mg DE Q4HP PRN #12 supp.rect 02/15/18 Promethazine HCl [Phenergan 25 mg Tablet] 1 tab PO Q6H PRN #15 tablet 02/15/18 Potassium Chloride 10 meq PO DAILY 30 Days #30 tablet.er 02/24/18 Ondansetron HCl/Pf [Zofran Inj/Pf 4 mg/2 ml Sdv] 8 mg PO Q8 10 Days #30 tab 03/04/18 History of Present Illness Patient complains of: vomitting and unable to tolerate food History of Present Illness: TORSTEN FORMAN is a 32 year old female Hospital Course Hospital Course: pt given fluids and is improved and tolerating a bland diet Physical Exam - Physical Exam Vital Signs: Temp Pulse Resp BP Pulse Ox 97.8 F 63 15 111/66 97 03/04/18 08:12 03/04/18 08:12 03/04/18 08:12 03/04/18 08:12 03/04/18 08:12 Intake & Output 03/03/18 03/04/18 03/05/18 06:59 06:59 06:59 Intake Total 1000 2705 Balance 1000 2705 Weight 82.9 kg 84 kg General appearance: PRESENT: no acute distress Respiratory exam: PRESENT: clear to auscultation julian Cardiovascular exam: PRESENT: RRR GI/Abdominal exam: PRESENT: soft Result Laboratory Results: 03/04/18 05:54 03/03/18 03/04/18 11:53 05:54 Sodium 133.7 L 137.7 Potassium 2.9 L* 3.5 L Chloride 100 104 Carbon Dioxide 25 28 Anion Gap 9 6 BUN < 2 L < 2 L Creatinine 0.33 L 0.47 L Est GFR ( Amer) > 60 > 60 Est GFR (Non-Af Amer) > 60 > 60 Glucose 85 79 Calcium 8.3 L 8.2 L Total Bilirubin 0.7 0.7 AST 26 26 ALT 51 49 Alkaline Phosphatase 39 34 L Total Protein 5.5 L 5.1 L Albumin 3.2 L 2.7 L Plan Discharge Plan: d/c f/u 1 week Time Spent: Less than 30 Minutes
[2018-03-04 12:07] VITALS: BP 106/68
--- NOTE | 2018-04-05 09:03 | PDOC H&P ---
History of Present Illness Admission Date/PCP: 03/03/18 16:32 unable to keep fluids down Patient complains of: N/V, unable to keep fluids down. specific gravity in clinic 1.030 History of Present Illness: TORSTEN FORMAN is a 32 year old female at 10 weeks with hyperemesis Past Surgical History Past Surgical History: Reports: None Social History Information Source: Patient Smoking Status: Never Smoker Frequency of Alcohol Use: None Hx Recreational Drug Use: No Drugs: None Hx Prescription Drug Abuse: No Family History Family History: Reviewed & Not Pertinent Parental Family History Reviewed: Yes Children Family History Reviewed: Yes Sibling(s) Family History Reviewed.: Yes Medication/Allergy Home Medications: Doxylamine Succinate/Vit B6 [Diclegis Dr 10-10 mg Tablet] 1 each PO Q8 #120 tablet. 02/06/18 Metoclopramide HCl [Reglan 10 mg Tablet] 1 - 2 tab PO ASDIR PRN 02/15/18 Promethazine HCl [Phenergan 25 mg Supp.rect] 25 mg NV Q4HP PRN #12 supp.rect 02/15/18 Promethazine HCl [Phenergan 25 mg Tablet] 1 tab PO Q6H PRN #15 tablet 02/15/18 Potassium Chloride 10 meq PO DAILY 30 Days #30 tablet.er 02/24/18 Ondansetron HCl [Zofran 8 mg Tablet] 8 mg PO Q8 PRN 03/04/18 Allergies/Adverse Reactions: No Known Allergies Allergy (Verified 03/19/18 08:02) Physical Exam - Physical Exam Vital Signs: Temp Pulse Resp BP Pulse Ox 98.1 F 65 14 106/68 98 03/04/18 11:35 03/04/18 11:35 03/04/18 11:35 03/04/18 11:35 03/04/18 11:35 General appearance: PRESENT: no acute distress, cooperative - vomiting in clinic Head exam: PRESENT: atraumatic, normocephalic Mouth exam: PRESENT: dry mucosa GI/Abdominal exam: PRESENT: soft. ABSENT: distended, guarding, mass, organolmegaly, rebound, tenderness Rectal exam: PRESENT: deferred Neurological exam: PRESENT: alert, oriented to person, oriented to place, oriented to time, oriented to situation Psychiatric exam: PRESENT: normal mood - Gynecological Exam Labia: normal Urethra: normal Perineum: normal Vagina: normal Cervix: normal Cervix: normal Uterus: normal Adhexa: normal Result Laboratory Results: 03/04/18 05:54 Assessment & Plan - Diagnosis (1) Electrolyte abnormality Is this a current diagnosis for this admission?: Yes (2) Hyperemesis gravidarum Is this a current diagnosis for this admission?: Yes - Time Time Spent: 30 to 50 Minutes Medications reviewed and adjusted accordingly: Yes Anticipated discharge: Home Within: within 48 hours - Inpatient Certification Based on my medical assessment, after consideration of the patient's comorbidities, presenting symptoms, or acuity I expect that the services needed warrant INPATIENT care.: Yes I certify that my determination is in accordance with my understanding of Medicare's requirements for reasonable and necessary INPATIENT services [42 CFR 412.3e].: Yes Medical Necessity: Need For IV Fluids - Plan Summary Plan Summary: IVF and antiemetics
== END 2018-03-04 13:35 | disposition home or self-care (01) | DRG 833 ==
LOC: 2S 10:40 → OBSVTOIN 03-03 16:32
PROVIDERS: ADMIT Obstetrics & Gynecology; ATTEND Obstetrics & Gynecology
DX: O21.0 Mild hyperemesis gravidarum (principal); Z3A.10 10 weeks gestation of pregnancy
CPT/HCPCS: 36415; 80053; G0378; G0379; J2405; J2550; J3411; J3475; J3480; J3490; J7030; J7120; S0119

== ENCOUNTER 2018-03-18 17:13 | Emergency (ER) | payer BC ==
[2018-03-18 18:35] VITALS: BP 119/70
== END 2018-03-18 20:02 | disposition left against medical advice (07) ==
LOC: ER 17:13
DX: Z53.21 Procedure and treatment not carried out due to patient leaving prior to being seen by health care provider (principal)

== ENCOUNTER 2018-03-19 08:00 | Emergency (ER) | payer BC ==
[2018-03-19] MEDS ORDERED: PROMETHAZINE HCL INJ 25 MG/1 ML VIAL IV ONE (10:23)
[2018-03-19] MEDS ORDERED: NORMAL SALINE 1000 ML 1,000 ML IV ONE ×2 (10:23→13:33)
[2018-03-19] MEDS ORDERED: ACETAMINOPHEN 325 MG TABLET PO ONE (10:24)
--- NOTE | 2018-03-19 10:28 | ER Document Report ---
ED Flu Like - General Chief Complaint: Flu Symptoms Stated Complaint: VOMITING/NAUSEA Time Seen by Provider: 03/19/18 10:14 Mode of Arrival: Ambulatory Information source: Patient Notes: 32-year-old female who is 12 weeks presents the emergency department with complaints of hyperemesis. Patient states that she has been unable to keep any liquids down since Thursday. She is taking Zofran for the nausea but it is not helping. Patient was diagnosed with the flu on Thursday. She is currently on Tamiflu. She denies any recent fever or chills. She states that she is constipated and is having a left-sided earache. She denies any vaginal bleeding or vaginal discharge. [facility] with [facility]. She states that she has had an ultrasound that showed a live intrauterine . TRAVEL OUTSIDE OF THE [place] IN LAST 30 DAYS: No - HPI Onset: Other - 3 days Quality of pain: No pain Severity: None Pain Level: Denies Associated symptoms: Nausea, Vomiting Similar symptoms previously: Yes Recently seen / treated by doctor: Yes - Related Data Allergies/Adverse Reactions: No Known Allergies Allergy (Verified 03/19/18 08:02) Past Medical History - General Information source: Patient - Social History Smoking Status: Never Smoker Frequency of alcohol use: None Drug Abuse: None Family History: Reviewed & Not Pertinent Patient has suicidal ideation: No Patient has homicidal ideation: No Renal/ Medical History: Denies: Hx Peritoneal Dialysis Review of Systems - Review of Systems Constitutional: No symptoms reported EENT: Ear pain, Nose discharge Cardiovascular: No symptoms reported Respiratory: No symptoms reported Gastrointestinal: Nausea, Vomiting, Constipation Genitourinary: No symptoms reported Female Genitourinary: No symptoms reported Musculoskeletal: No symptoms reported Skin: No symptoms reported Hematologic/Lymphatic: No symptoms reported Neurological/Psychological: No symptoms reported -: Yes All other systems reviewed and negative Physical Exam - Vital signs Vitals: Temp Pulse Resp BP Pulse Ox 98.1 F 83 18 107/76 100 03/19/18 08:05 03/19/18 08:05 03/19/18 08:05 03/19/18 08:05 03/19/18 08:05 - Notes Notes: PHYSICAL EXAMINATION: GENERAL: Well-appearing, well-nourished and in no acute distress. HEAD: Atraumatic, normocephalic. EYES: Pupils equal round and reactive to light, extraocular movements intact, conjunctiva are normal. ENT: Nares patent, oropharynx clear without exudates. Moist mucous membranes. Left TM does not have any fluid behind it. Normal light reflex. No erythema to canal or TM. NECK: Normal range of motion, supple without lymphadenopathy LUNGS: Breath sounds clear to auscultation bilaterally and equal. No wheezes rales or rhonchi. HEART: Regular rate and rhythm without murmurs ABDOMEN: Soft, nontender, nondistended abdomen. No guarding, no rebound. No masses appreciated. Female : deferred Musculoskeletal: Normal range of motion, no pitting or edema. No cyanosis. NEUROLOGICAL: Cranial nerves grossly intact. Normal speech, normal gait. Normal sensory, motor exams PSYCH: Normal mood, normal affect. SKIN: Warm, Dry, normal turgor, no rashes or lesions noted. Course - Vital Signs Vital signs: Temp Pulse Resp BP Pulse Ox 98.1 F 83 18 107/76 100 03/19/18 08:05 03/19/18 08:05 03/19/18 08:05 03/19/18 08:05 03/19/18 08:05
--- NOTE | 2018-03-19 10:37 | ER Document Report ---
ED Medical Screen (RME) - General Chief Complaint: Flu Symptoms Stated Complaint: VOMITING/NAUSEA Time Seen by Provider: 03/19/18 10:14 Mode of Arrival: Ambulatory Information source: Patient Notes: 32-year-old female who is 12 weeks presents the emergency department with complaints of hyperemesis. Patient states that she has been unable to keep any liquids down since Thursday. She is taking Zofran for the nausea but it is not helping. Patient was diagnosed with the flu on Thursday. She is currently on Tamiflu. She denies any recent fever or chills. She states that she is c onstipated and is having a left-sided earache. She denies any vaginal bleeding or vaginal discharge. Patient follows [facility] with [facility]. She states that she has had an ultrasound that showed a live intrauterine . I have greeted and performed a rapid initial assessment of this patient. A comprehensive ED assessment and evaluation of the patient, analysis of test results and completion of the medical decision making process will be conducted by additional ED providers. PHYSICAL EXAMINATION: GENERAL: Well-appearing, well-nourished and in no acute distress. HEAD: Atraumatic, normocephalic. EYES: Pupils equal round extraocular movements intact, conjunctiva are normal. ENT: Nares patent NECK: Normal range of motion LUNGS: No respiratory distress Musculoskeletal: Normal range of motion NEUROLOGICAL: Normal speech, normal gait. PSYCH: Normal mood, normal affect. SKIN: Warm, Dry, normal turgor, no rashes or lesions noted. TRAVEL OUTSIDE OF THE [place] IN LAST 30 DAYS: No - Related Data Allergies/Adverse Reactions: No Known Allergies Allergy (Verified 03/19/18 08:02) Past Medical History - Social History Frequency of alcohol use: None Drug Abuse: None Renal/ Medical History: Denies: Hx Peritoneal Dialysis - Immunizations History of Influenza Vaccine for 11/2016 - 04/2017 Season: Yes Physical Exam - Vital signs Vitals: Temp Pulse Resp BP Pulse Ox 98.1 F 83 18 107/76 100 03/19/18 08:05 03/19/18 08:05 03/19/18 08:05 03/19/18 08:05 03/19/18 08:05 Course - Vital Signs Vital signs: Temp Pulse Resp BP Pulse Ox 98.1 F 83 18 107/76 100 03/19/18 08:05 03/19/18 08:05 03/19/18 08:05 03/19/18 08:05 03/19/18 08:05
[2018-03-19 11:09] LABS: ABSOLUTE EOSINOPHILS # (AUTO) 0.1 10^3/uL (0.0-0.6); ABSOLUTE LYMPHOCYTES (AUTO) 1.6 10^3/uL (0.5-4.7); ABSOLUTE MONOCYTES (AUTO) 0.9 10^3/uL (0.1-1.4); BASOPHILS % (AUTO) 0.3 % (0-2); EOSINOPHILS % (AUTO) 1.2 % (0-6); HEMATOCRIT 37.8 % (36.0-47.0); LYMPHOCYTES % (AUTO) 15.1 % (13-45); MEAN CORPUSCULAR HEMOGLOBIN 30.2 pg (27.0-33.4); MEAN CORPUSCULAR HGB CONC 34.4 g/dL (32.0-36.0); MEAN CORPUSCULAR VOLUME 88 fl (80-97); MONOCYTES % (AUTO) 8.7 % (3-13); PLATELET COUNT 339 10^3/uL (150-450); RED BLOOD COUNT 4.31 10^6/uL (3.72-5.28); RED CELL DISTRIBUTION WIDTH 13.7 % (11.5-14.0); SEGMENTED NEUTROPHILS % (AUTO) 74.7 % (42-78); TOTAL CELLS COUNTED % (AUTO) 100 %; WHITE BLOOD COUNT 10.7 10^3/uL (4.0-10.5)
[2018-03-19 11:24] LABS: ALANINE AMINOTRANSFERASE 15 U/L (9-52); ALBUMIN 4.6 g/dL (3.5-5.0); ALKALINE PHOSPHATASE 100 U/L (38-126); ANION GAP 15 (5-19); ASPARTATE AMINO TRANSFERASE 23 U/L (14-36); BILIRUBIN,DIRECT 0.6 mg/dL (0.0-0.4); BLOOD UREA NITROGEN 4 mg/dL (7-20); CALCIUM 9.6 mg/dL (8.4-10.2); CARBON DIOXIDE 22 mmol/L (22-30); CHLORIDE 104 mmol/L (98-107); GLUCOSE 86 mg/dL (75-110); POTASSIUM 3.7 mmol/L (3.6-5.0); SODIUM 140.6 mmol/L (137-145); TOTAL PROTEIN 8.4 g/dL (6.3-8.2)
[2018-03-19 13:15] LABS: APPEARANCE,URINE SLIGHTLY-CLOUDY; BILIRUBIN,URINE SMALL (NEGATIVE); COLOR,URINE AMBER; GLUCOSE, URINE NEGATIVE (NEGATIVE); KETONES,URINE 80 mg/dL (NEGATIVE); LEUKOCYTE ESTERASE,URINE NEGATIVE (NEGATIVE); NITRITE,URINE NEGATIVE (NEGATIVE); PROTEIN,URINE 100 mg/dL (NEGATIVE); URINE SPECIFIC GRAVITY 1.032
--- NOTE | 2018-03-19 14:38 | ER Document Report ---
ED Flu Like - General Chief Complaint: Flu Symptoms Stated Complaint: VOMITING/NAUSEA Time Seen by Provider: 03/19/18 10:14 Primary Care Provider: LUISITO CHU MD [Primary Care Provider] - Follow up as needed Mode of Arrival: Ambulatory Notes: Patient is a 32-year-old 12-week female presents to the emergency department for vomiting. States she was diagnosed with influenza on Thursday. Since then has had a total of 5 episodes of intermittent vomiting and has been unable to eat or drink anything. Patient is denying any diarrhea. States on Thursday and Thursday she had a subjective fever but has not had a fever since then. Patient's also complaining of a generalized cough and congestion. Past medical history: Hypothyroid Medications: None Allergies: None TRAVEL OUTSIDE OF THE [place] IN LAST 30 DAYS: No - Related Data Allergies/Adverse Reactions: No Known Allergies Allergy (Verified 03/19/18 08:02) Past Medical History - General Information source: Patient - Social History Smoking Status: Never Smoker Frequency of alcohol use: None Drug Abuse: None Family History: Reviewed & Not Pertinent Patient has suicidal ideation: No Patient has homicidal ideation: No Renal/ Medical History: Denies: Hx Peritoneal Dialysis Review of Systems - Review of Systems Constitutional: See HPI EENT: See HPI Cardiovascular: No symptoms reported Respiratory: See HPI Gastrointestinal: See HPI Genitourinary: denies: Burning, Dysuria Female Genitourinary: See HPI Musculoskeletal: No symptoms reported Skin: No symptoms reported Hematologic/Lymphatic: No symptoms reported Neurological/Psychological: No symptoms reported Physical Exam - Vital signs Vitals: Temp Pulse Resp BP Pulse Ox 98.1 F 83 18 107/76 100 03/19/18 08:05 03/19/18 08:05 03/19/18 08:05 03/19/18 08:05 03/19/18 08:05 - Notes Notes: GENERAL: Alert, interacts well. No acute distress. HEAD: Normocephalic, atraumatic. No frontal or maxillary sinus tenderness noted EYES: Pupils equal, round, and reactive to light. Extraocular movements intact. ENT: Oral mucosa moist, tongue midline. Nares patent, TM's intact, nonerythematous, nonbulging bilaterally. Pharynx within normal limits, no palatal petechiae or exudate noted NECK: Full range of motion. Supple. Trachea midline. LUNGS: Clear to auscultation bilaterally, no wheezes, rales, or rhonchi. No respiratory distress. HEART: Regular rate and rhythm. No murmur ABDOMEN: Soft, non-tender. Non-distended. Bowel sounds present in all 4 quadrants. EXTREMITIES: Moves all 4 extremities spontaneously. No edema, normal radial and dorsalis pedis pulses bilaterally. No cyanosis. BACK: no cervical, thoracic, lumbar midline tenderness. No saddle anesthesia, normal distal neurovascular exam. No CVA tenderness noted bilaterally NEUROLOGICAL: Alert and oriented x3. Normal speech. cranial nerves II through XII grossly intact. PSYCH: Flat affect, normal mood. SKIN: Warm, dry, normal turgor. No rashes or lesions noted. Course - Re-evaluation Re-evalutation: 03/19/18 14:36 Patient initially presented afebrile and non-tachycardic. She was given Tylenol and 1 L of IV fluid by E provider. IV antiemetics were also ordered but patient declined. Upon my evaluation the patient states she has not vomited since being in the emergency department and feels as though she could eat or drink something. She then drank some juice and ate crackers with no further episodes of vomiting. Patient's labs did show a leukocytosis of 10.7 likely due to the vomiting. No signs of anemia, no signs of electrolyte abnormalities. Patient's urine did show an elevation in her specific gravity at 1.032 and signs of ketones on her urine consistent with dehydration. Urinalysis showed 4 WBCs with 3 squamous cells negative bacteria no leukocyte esterase. Will not treat for urinary tract infection at this time, sent for culture. Patient was treated with 2 L total of normal saline solution for her dehydration in the emergency room. Discussed home use of medications for generalized nausea and vomiting. Discussed flu treatments and return precautions. Patient voices understanding and is stable for discharge. - Vital Signs Vital signs: Temp Pulse Resp BP Pulse Ox 98.1 F 83 18 107/76 100 03/19/18 08:05 03/19/18 08:05 03/19/18 08:05 03/19/18 08:05 03/19/18 08:05 - Laboratory Result Diagrams: 03/19/18 10:45 03/19/18 10:45 Laboratory results interpreted by me: 03/19/18 03/19/18 03/19/18 10:45 10:45 12:31 WBC 10.7 H BUN 4 L Creatinine 0.49 L Direct Bilirubin 0.6 H Total Protein 8.4 H Urine Protein 100 H Urine Ketones 80 H Urine Bilirubin SMALL H Urine Urobilinogen 4.0 H Discharge - Discharge Clinical Impression: Vomiting affecting Condition: Stable Disposition: HOME, SELF-CARE Instructions: Intravenous (IV) Fluids ([facility]), Vomiting ([facility]) Additional Instructions: As we discussed you have been seen and treated in the emergency department for your generalized vomiting and dehydration. Your fluids have been replaced with normal saline solution. Please take nausea medications that we have discussed about [id number]. They are safe in . Please also try to stay well-hydrated with water, Pedialyte, Gatorade. Please follow-up with your [employer]OR and primary care provider in the next 24-48 hours. Please return to the emergency room for any other concerning symptoms. Referrals: LUISITO CHU MD [Primary Care Provider] - Follow up as needed
[2018-03-19 15:15] VITALS: BP 112/76
== END 2018-03-19 15:15 | disposition home or self-care (01) ==
LOC: ER 08:00
DX: O21.9 Vomiting of pregnancy, unspecified (principal); O99.281 Endocrine, nutritional and metabolic diseases complicating pregnancy, first trimester; E86.0 Dehydration; O99.111 Other diseases of the blood and blood-forming organs and certain disorders involving the immune mechanism complicating pregnancy, first trimester; D72.829 Elevated white blood cell count, unspecified; O26.891 Other specified pregnancy related conditions, first trimester; R05 Cough; Z3A.12 12 weeks gestation of pregnancy
CPT/HCPCS: 99283; 96360; 96361; 36415; 85025; 80053; 81001; J7030

== ENCOUNTER 2018-09-10 17:30 | Outpatient (CLI) | payer BC ==
[2018-09-10 18:11] LABS: BACTERIA (WET MOUNT) 4+ BACTERIA SEEN; EPITHELIALS (WET MOUNT) 3+ EPITHELIALS SEEN; RBCS (WET MOUNT) NO RBCS SEEN; T.VAGINALIS (WET MOUNT) NO TRICHOMONAS SEEN; WBCS (WET MOUNT) NO WBCS SEEN; YEAST (WET MOUNT) NO YEAST SEEN
[2018-09-10 18:24] LABS: URINE AMPHETAMINES SCREEN NEGATIVE; URINE BARBITURATES SCREEN NEGATIVE; URINE BENZODIAZEPINES SCREEN NEGATIVE; URINE MARIJUANA (THC) SCREEN NEGATIVE; URINE METHADONE SCREEN NEGATIVE; URINE PHENCYCLIDINE SCREEN NEGATIVE
[2018-09-10 18:25] LABS: APPEARANCE,URINE SLIGHTLY-CLOUDY; BILIRUBIN,URINE NEGATIVE (NEGATIVE); GLUCOSE, URINE NEGATIVE (NEGATIVE); KETONES,URINE 20 mg/dL (NEGATIVE); LEUKOCYTE ESTERASE,URINE NEGATIVE (NEGATIVE); NITRITE,URINE NEGATIVE (NEGATIVE); PROTEIN,URINE 30 mg/dL (NEGATIVE); URINE SPECIFIC GRAVITY 1.029
[2018-09-10 18:26] LABS: URINE COCAINE SCREEN NEGATIVE
[2018-09-10 18:39] LABS: COLOR,URINE YELLOW
[2018-09-10 19:37] LABS: CHLAM PCR NOT DETECTED (NOT DETECT)
--- NOTE | 2018-09-14 00:57 | Non Stress Test Report ---
Non Stress Test Datetime Report Generated by CPN: 09/14/2018 00:57 DEMOGRAPHIC EGA NST: 37.4 INDICATION Indication for Study: Ordered by Provider VITAL SIGNS Pulse - NST: 69 RESP - NST: 16 NBPSYS NST: 126 NBPDIA NST: 78 URINE RESULTS Urine Protein, NST: Positive Urine Ketones - NST: Positive Urine Glucose - NST: Negative Urine Blood - NST: Negative MONITORING Monitor Explained: Monitor Explained; Test Explained; Patient Verbalized Understanding Time on Monitor: 09/10/2018 17:53 Time off Monitor: 09/10/2018 19:18 NST Duration: 85 NST INTERVENTIONS NST Interventions: PO Hydration Physician Notified NST: Dr. Pardo BABY A: [id number] BABY A Movement : Present Contraction Frequency : ui rare ctx FHR Baseline : 145 Accelerations : 15X15 Decelerations : None Variability : Moderate 6-25bpm NST Review: Meets Criteria for Reactive NST NST Review and Verified By : Matthias Alcaraz RN NST Results: Reactive NST REPORT Report Trigger: Send Report
== END 2018-09-10 20:14 | disposition home or self-care (01) ==
LOC: LC 17:30
PROVIDERS: ATTEND Student in an Organized Health Care Education/Training Program
PROC: 4A1HXCZ Monitoring of Products of Conception, Cardiac Rate, External Approach (ICD-10-PCS; principal; 2018-09-10)
DX: O47.1 False labor at or after 37 completed weeks of gestation (principal); Z3A.37 37 weeks gestation of pregnancy
CPT/HCPCS: 59025; 80307; 81005; 87081; 87210; 87491; 87591

== ENCOUNTER 2018-09-14 00:56 | Inpatient (IN) | payer BC ==
[2018-09-14] MEDS ORDERED: OXYTOCIN/NORMAL SALINE 0 UNIT/0 ML RTUINJ ONE (01:10)
[2018-09-14] MEDS ORDERED: MISOPROSTOL 0.2 MG TABLET ONE ×2 (01:10→01:12)
[2018-09-14] MEDS ORDERED: OXYTOCIN 10 UNIT/ML VIAL ONE ×2 (01:10→01:12)
[2018-09-14] MEDS ORDERED: LIDOCAINE 1% INJ-PF (10 MG/ML) 30 ML SDV ONE ×2 (01:10→01:12)
[2018-09-14] MEDS ORDERED: PENICILLIN G-K 5 MILLION UNIT VIAL ONE (01:12)
[2018-09-14] MEDS ORDERED: OXYTOCIN/NORMAL SALINE 20 UNIT/1,000 ML RTUINJ ONE (01:12)
--- NOTE | 2018-09-14 01:44 | Admission Physical ---
Datetime Report Generated by CPN: 09/14/2018 01:44 CURRENT ADMISSION Chief Complaint: Uterine Contractions Indication for Induction: Not Applicable Admit Impression : Term, Intrauterine ; Active Labor Admit Plan: Admit to Unit ALLERGIES Medication Allergies: No Known Allergies (09/14/2018) OBSTETRICAL HISTORY EDC: 09/27/2018 00:00 PHYSICAL EXAM General: Normal HEENT: Normal Neurologic: Normal Thyroid: Normal Heart: Normal Lungs: Normal Breast: Deferred Back: Normal Abdomen: Normal Genitourinary Exam: Normal Extremities: Normal DTRs: Normal Pelvic Type: Adequate Vital Signs: Reviewed VAGINAL EXAM Dilatation: 5 Effacement: 80 Station: -2 MEMBRANES Pooling: Negative Membranes: Intact FETUS A EGA: 38.1 Monitoring: External US FHR- Baseline: 120 Variability: Moderate 6-25bpm Decelerations: None FHR Category: Category I Presentation: Vertex Admit Comment: admit for labor INFORMED CONSENT Signature: with User ID: [email or web address]
[2018-09-14] MEDS ORDERED: RINGERS SOLUTION,LACTATED 1,000 ML IV ONE (02:00)
[2018-09-14] MEDS ORDERED: PENICILLIN G POTASSIUM 5,000,000 UNIT in DEXTROSE 5%-WATER 100 ML IV ONE (02:00)
[2018-09-14] MEDS ORDERED: DIPH/PERTUSS(ACELL)/TETANUS VAC/PF 0.5 ML SYR (>=10YO) IM PRN (02:03)
[2018-09-14] MEDS ORDERED: ZOLPIDEM TARTRATE 5 MG TABLET PO PRN (02:03)
[2018-09-14] MEDS ORDERED: DIBUCAINE 1% OINTMENT 56 GM TP PRN (02:03)
[2018-09-14] MEDS ORDERED: NA PHOS,M-B/NA PHOS,DI-BA (ADULT) 133 ML ENEMA PR PRN (02:03)
[2018-09-14] MEDS ORDERED: PROMETHAZINE HCL 25 MG TABLET PO PRN (02:03)
[2018-09-14] MEDS ORDERED: BENZOCAINE/MENTHOL AEROSOL SPRAY 56 ML TOP PRN (02:03)
[2018-09-14] MEDS ORDERED: PROMETHAZINE HCL INJ 25 MG/1 ML VIAL IV PRN (02:03)
[2018-09-14] MEDS ORDERED: PSEUDOEPHEDRINE HCL 30 MG TABLET PO PRN (02:03)
[2018-09-14] MEDS ORDERED: OXYTOCIN/NORMAL SALINE 20 UNIT/1,000 ML RTUINJ IV PRN (02:03)
[2018-09-14] MEDS ORDERED: DIPHENHYDRAMINE HCL 25 MG CAPSULE PO PRN (02:03)
[2018-09-14] MEDS ORDERED: MAGNESIUM HYDROXIDE SUSP 30 ML UDCUP PO PRN (02:03)
[2018-09-14] MEDS ORDERED: GLYCERIN/WITCH HAZEL LEAF 1 EACH MED..WIPE TP PRN (02:03)
[2018-09-14] MEDS ORDERED: PROMETHAZINE HCL 25 MG SUPP.RECT PR PRN (02:03)
[2018-09-14] MEDS ORDERED: ACETAMINOPHEN 650 MG SUPP.RECT PR PRN (02:03)
[2018-09-14] MEDS ORDERED: ACETAMINOPHEN WITH CODEINE #3 TABLET PO PRN ×2 (02:03)
[2018-09-14] MEDS ORDERED: MEASLES,MUMPS&RUBELLA VACC/PF 0.5 ML VIAL SUBCUT PRN (02:03)
--- NOTE | 2018-09-14 02:06 | Warning Signs in Babies ---
VOD Warning Signs Datetime Report Generated by [facility]: 09/14/2018 02:06 VOD#[id number] -Warning Signs in Babies: Needs to be viewed. (09/10/2018 17:36:Laila Valdes RN)
[2018-09-14] MEDS ORDERED: IBUPROFEN 800 MG TABLET ONE (02:10)
[2018-09-14 02:31] LABS: URINE AMPHETAMINES SCREEN NEGATIVE; URINE BARBITURATES SCREEN NEGATIVE; URINE BENZODIAZEPINES SCREEN NEGATIVE; URINE COCAINE SCREEN NEGATIVE; URINE MARIJUANA (THC) SCREEN NEGATIVE; URINE METHADONE SCREEN NEGATIVE; URINE PHENCYCLIDINE SCREEN NEGATIVE
[2018-09-14 02:47] LABS: ABSOLUTE LYMPHOCYTES (AUTO) 1.9 10^3/uL (0.5-4.7); ABSOLUTE MONOCYTES (AUTO) 0.7 10^3/uL (0.1-1.4); ABSOLUTE NEUT (AUTO) 5.1 10^3/uL (1.7-8.2); BASOPHILS % (AUTO) 0.2 % (0-2); EOSINOPHILS % (AUTO) 0.4 % (0-6); HEMATOCRIT 36.2 % (36.0-47.0); LYMPHOCYTES % (AUTO) 25.1 % (13-45); MEAN CORPUSCULAR HEMOGLOBIN 28.6 pg (27.0-33.4); MEAN CORPUSCULAR HGB CONC 33.2 g/dL (32.0-36.0); MEAN CORPUSCULAR VOLUME 86 fl (80-97); MONOCYTES % (AUTO) 8.7 % (3-13); PLATELET COUNT 162 10^3/uL (150-450); RED BLOOD COUNT 4.19 10^6/uL (3.72-5.28); SEGMENTED NEUTROPHILS % (AUTO) 65.6 % (42-78); TOTAL CELLS COUNTED % (AUTO) 100 %; WHITE BLOOD COUNT 7.8 10^3/uL (4.0-10.5)
--- NOTE | 2018-09-14 02:55 | Warning Signs in Babies ---
VOD Warning Signs Datetime Report Generated by [facility]: 09/14/2018 02:55 VOD#608 -Warning Signs in Babies: Viewed with Parent(s)/Family (09/14/2018 02:15:Mariia Escudero RN)
[2018-09-14 04:41] LABS: APPEARANCE,URINE SLIGHTLY-CLOUDY; BILIRUBIN,URINE NEGATIVE (NEGATIVE); COLOR,URINE YELLOW; GLUCOSE, URINE NEGATIVE (NEGATIVE); KETONES,URINE NEGATIVE (NEGATIVE); LEUKOCYTE ESTERASE,URINE NEGATIVE (NEGATIVE); NITRITE,URINE NEGATIVE (NEGATIVE); PROTEIN,URINE NEGATIVE (NEGATIVE); UROBILINOGEN,URINE NEGATIVE mg/dL (<2.0)
[2018-09-14] MEDS ORDERED: PENICILLIN G POTASSIUM 2,500,000 UNIT in DEXTROSE 5%-WATER 50 ML IV SCH (06:00)
[2018-09-14] MEDS ORDERED: IBUPROFEN 800 MG TABLET PO SCH (06:00)
[2018-09-14 06:08] LABS: CHLAM PCR NOT DETECTED (NOT DETECT)
--- NOTE | 2018-09-14 09:48 | PDOC PROGRESS REPORT ---
Subjective-OB Progress Note for:: 09/14/18 Subjective: Doing well, no c/o, hsb holding baby, still feeling tired, Physical Exam (OB) Vital Signs: Temp Pulse Resp BP Pulse Ox 98.2 F 69 16 127/79 H 100 09/14/18 08:23 09/14/18 08:23 09/14/18 08:23 09/14/18 08:23 09/14/18 08:23 Intake & Output 09/13/18 09/14/18 09/15/18 06:59 06:59 06:59 Weight 98.5 kg - PIH/Pre-Eclampsia DTR's: 2 + Clonus: Negative Headache: Absent Epigastric Pain: No Visual Changes: No - Lochia Lochia Amount: Moderate 25-50 ml Lochia Color: Rubra/Red - Abdomen Description: Soft, Round Fundal Description: Firm, Midline Fundal Height: u/u - u/2 Objective-Diagnostic Laboratory: 09/14/18 02:29 09/14/18 09/14/18 09/14/18 01:00 02:29 02:29 WBC 7.8 RBC 4.19 Hgb 12.0 Hct 36.2 MCV 86 MCH 28.6 MCHC 33.2 RDW 14.0 Plt Count 162 Seg Neutrophils % 65.6 Lymphocytes % 25.1 Monocytes % 8.7 Eosinophils % 0.4 Basophils % 0.2 Absolute Neutrophils 5.1 Absolute Lymphocytes 1.9 Absolute Monocytes 0.7 Absolute Eosinophils 0.0 Absolute Basophils 0.0 Urine Color YELLOW Urine Appearance SLIGHTLY-CLOUDY Urine pH 6.0 Ur Specific [place] 1.020 Urine Protein NEGATIVE Urine Glucose (UA) NEGATIVE Urine Ketones NEGATIVE Urine Blood NEGATIVE Urine Nitrite NEGATIVE Ur Leukocyte Esterase NEGATIVE Blood Type A POSITIVE Antibody Screen NEGATIVE Assessment and Plan(PN) - Assessment and Plan (1) Delivery normal Is this a current diagnosis for this admission?: Yes - Time Spent with Patient Time with patient: Less than 15 minutes Medications reviewed and adjusted accordingly: Yes - Disposition Anticipated Discharge: Home Within: within 24 hours
[2018-09-14] MEDS: FERROUS SULFATE 325 MG TABLET PO SCH ×2 (09:50→17:42)
[2018-09-14] MEDS: PRENATAL VITAMIN W DHA CAPSULE PO SCH (09:50)
[2018-09-14] MEDS: IBUPROFEN 800 MG TABLET PO SCH ×2 (09:51→17:42)
[2018-09-14] MEDS: FAMOTIDINE 20 MG TABLET PO SCH ×2 (12:26→21:44)
[2018-09-14] MEDS: DOCUSATE SODIUM 100 MG CAPSULE PO SCH ×2 (12:26→17:43)
[2018-09-14] MEDS: SENNOSIDES/DOCUSATE 8.6-50 MG 1 EACH TABLET PO SCH (12:26)
[2018-09-15] MEDS: IBUPROFEN 800 MG TABLET PO SCH ×3 (02:09→17:53)
[2018-09-15 06:39] LABS: HEMATOCRIT 33.1 % (36.0-47.0); MEAN CORPUSCULAR HEMOGLOBIN 28.5 pg (27.0-33.4); MEAN CORPUSCULAR HGB CONC 33.3 g/dL (32.0-36.0); MEAN CORPUSCULAR VOLUME 86 fl (80-97); PLATELET COUNT 177 10^3/uL (150-450); RED BLOOD COUNT 3.87 10^6/uL (3.72-5.28); RED CELL DISTRIBUTION WIDTH 13.9 % (11.5-14.0); WHITE BLOOD COUNT 8.6 10^3/uL (4.0-10.5)
--- NOTE | 2018-09-15 09:25 | PDOC PROGRESS REPORT ---
Subjective-OB Progress Note for:: 09/15/18 - PP day #1, doing well, no complaints, , A+ Rubella Immune Physical Exam (OB) Vital Signs: Temp Pulse Resp BP Pulse Ox 97.6 F 61 20 117/76 99 09/15/18 08:00 09/15/18 08:00 09/15/18 08:00 09/15/18 08:00 09/15/18 08:00 Intake & Output 09/14/18 09/15/18 09/16/18 06:59 06:59 06:59 Intake Total 1000 Balance 1000 Weight 98.5 kg - General General Appearance: Appears well, Alert In distress: None - PIH/Pre-Eclampsia DTR's: 2 + Clonus: Negative Headache: Absent Epigastric Pain: No Visual Changes: No - Lochia Lochia Amount: Scant < 10 ml Lochia Color: Rubra/Red - Abdomen Description: Tender, Soft Hernia Present: No Fundal Description: Firm, Midline Fundal Height: u/u - u/2 - Respiratory Respiratory Status: No respiratory distress - Abdominal Inspection: Normal Distension: No distension - Genitourinary Genitourinary Note: voiding - Extremities Upper extremity: Normal inspection Lower extremities: Normal inspection - Neurological Cognition: Normal Orientation: AAOx4 - Psychological Associated symptoms: Normal affect, Normal mood - Skin Skin Temperature: Warm Skin Moisture: Dry Objective-Diagnostic Laboratory: 09/15/18 06:01 09/15/18 06:01 WBC 8.6 RBC 3.87 Hgb 11.0 L Hct 33.1 L MCV 86 MCH 28.5 MCHC 33.3 RDW 13.9 Plt Count 177 Assessment and Plan(PN) - Assessment and Plan (1) Delivery normal Is this a current diagnosis for this admission?: Yes (2) Electrolyte abnormality Is this a current diagnosis for this admission?: Yes (3) Hyperemesis Is this a current diagnosis for this admission?: Yes (4) Nausea Is this a current diagnosis for this admission?: Yes (5) Qualifiers: Weeks of gestation: 40 weeks Qualified Code(s): Z3A.40 - 40 weeks gestation of Is this a current diagnosis for this admission?: Yes (6) Vomiting Qualifiers: Vomiting type: unspecified Vomiting Intractability: non-intractable Nausea presence: with nausea Qualified Code(s): R11.2 - Nausea with vomiting, unspecified Is this a current diagnosis for this admission?: No - Time Spent with Patient Time with patient: Less than 15 minutes Medications reviewed and adjusted accordingly: Yes - Disposition Anticipated Discharge: Home Within: within 24 hours
[2018-09-15] MEDS: PRENATAL VITAMIN W DHA CAPSULE PO SCH (11:05)
[2018-09-15] MEDS: FERROUS SULFATE 325 MG TABLET PO SCH ×2 (11:05→17:53)
[2018-09-15] MEDS: DOCUSATE SODIUM 100 MG CAPSULE PO SCH ×2 (11:06→18:00)
[2018-09-15] MEDS: SENNOSIDES/DOCUSATE 8.6-50 MG 1 EACH TABLET PO SCH (11:06)
[2018-09-15] MEDS: FAMOTIDINE 20 MG TABLET PO SCH ×2 (11:06→21:36)
[2018-09-16] MEDS: IBUPROFEN 800 MG TABLET PO SCH ×2 (01:22→09:56)
[2018-09-16 09:18] VITALS: BP 122/67
--- NOTE | 2018-09-16 09:42 | Delivery Summary ---
Del Sum A-C Datetime Report Generated by CPN: 09/16/2018 09:42 DELIVERY PERSONNEL DELIVERY PERSONNEL: [id number] Delivery Doctor:: Terra Tomlinson MD Labor and Delivery Nurse:: Mariia Escudero RNmining plant operator Nurse:: Laila Valdes RN Transformation Architect/RUBBER PRESS TENDER: Zahraa Green, ST MATERNAL INFORMATION Delivery Anesthesia: None Medications After Delivery: Pitocin Bolus-Please Comment; Pitocin Drip 20 Units/1000ml NSS; Cytotec 1000mcg Per Rectum/Vagina Meds After Delivery Comment: Pitocin 20 units bolusing in 1000 mL NS Estimated Blood Loss (ml): 250 Delivery QBL: 250 Maternal Complications: Precipitous Labor (<3hrs) LABOR SUMMARY EDC: 09/27/2018 00:00 No. Babies in Womb: 1 Attempted: No Labor Anesthesia: None LABOR INFORMATION Reason for Induction: Not Applicable Onset of Labor: 09/14/2018 00:57 Complete Dilatation: 09/14/2018 01:52 Oxytocin: N/A Group B Beta Strep: 1 NO GROUP B STREPTOCOCCUS RECOVERED Antibiotics # of Doses: 1 Antibiotics Time of Last Dose: 0126 Name of Antibiotic Given: Penicillin Steroids Given: None Reason Steroids Not Administered: Not Applicable MEMBRANES Membranes Rupture Method: Artificial Rupture of Membranes: 09/14/2018 01:53 Length of Rupture (hr): 0.03 Amniotic Fluid Color: Clear Amniotic Fluid Amount: Scant Amniotic Fluid Odor: Normal STAGES OF LABOR Stage 1 hr: 0 Stage 1 min: 55 Stage 2 hr: 0 Stage 2 min: 3 Stage 3 hr: 0 Stage 3 min: 3 Total Time in Labor hr: 1 Total Time in Labor min: 1 VAGINAL DELIVERY Episiotomy: None Laceration #1: None Laceration Extension #1: N/A Laceration Extension #1: N/A Laceration #2: None Laceration Extension #2: N/A Laceration #3: None Laceration Extension #3: N/A Laceration Repair: Not Applicable Laceration Repair: Not Applicable Sponge Count Correct: Vaginal Sweep Performed Sharps Count Correct: N/A CSECTION DELIVERY Primary Indication: N/A Secondary Indication: N/A CSection Incidence: N/A Labor: N/A Elective: N/A CSection Incision: N/A BABY A INFORMATION Delivery Date/Time: 09/14/2018 01:55 Method of Delivery: Vaginal Method of Delivery: Vaginal Born in Route : No : N/A Forceps: N/A Vacuum Extraction: N/A Shoulder Dystocia : No PRESENTATION/POSITION BABY A Presentation: Cephalic Cephalic Presentation: Vertex Vertex Position: Right Occipital Anterior Breech Presentation: N/A PLACENTA INFORMATION BABY A Placenta Delivery Time : 09/14/2018 01:58 Placenta Method of Delivery: Spontaneous Placenta Method of Delivery: Spontaneous Placenta Status: Delivered SCORES BABY A Heart Rate 1 min: >100 bpm Resp Effort 1 min: Good Cry Reflex Irritability 1 min: Cough or Sneeze or Pulls Away Muscle Tone 1 min: Active Motion Color 1 min: Blue/Pale Resuscitation Effort 1 min: Tactile Stimulation SCORE 1 MIN: 8 Heart Rate 5 min: >100 bpm Resp Effort 5 min: Good Cry Reflex Irritability 5 min: Cough or Sneeze or Pulls Away Muscle Tone 5 min: Active Motion Color 5 min: Body Sophia, Extremities Blue SCORE 5 MIN: 9 INFORMATION BABY A Gestational Age at Delivery: 38.1 Gestational Status: Early Term- 37- 38.6 Weeks Infant Outcome : Liveborn Condition : Stable Sex: Female Infant Sex: Female IDENTIFICATION BABY A ID Band Number: [id number] Mother's Name Verified: Yes RN Verifying : K Kota RN Additional Verifying Personnel: Iman Valdes RN WEIGHT/LENGTH BABY A Infant Birthweight (gm): 3260 Infant Weight (lb): 7 Infant Weight (oz): 3 Infant Length (in): 20.00 Infant Length (cm): 50.80 CORD INFORMATION BABY A No. Cord Vessels: 3 Nuchal Cord : N/A Cord Blood Taken: Yes-For Storage (Mom's Blood type +) Infant Suction: None ASSESSMENT BABY A Infant Complications: None Complications: None Physical Findings at Delivery: Within Normal Limits Physical Findings at Delivery: Within Normal Limits Respirations: Appears Normal Respirations: Appears Normal Skin to Skin: Yes Head Of Integrated Media/ALS Called : No Transferred To: Remains with Mother Transferred To: Remains with Mother BABY B INFORMATION : N/A SIGNATURES Signature: with User ID: [email or web address]
[2018-09-16] MEDS: PRENATAL VITAMIN W DHA CAPSULE PO SCH (09:56)
[2018-09-16] MEDS: FERROUS SULFATE 325 MG TABLET PO SCH (09:56)
[2018-09-16] MEDS: SENNOSIDES/DOCUSATE 8.6-50 MG 1 EACH TABLET PO SCH (10:22)
[2018-09-16] MEDS: FAMOTIDINE 20 MG TABLET PO SCH (10:22)
[2018-09-16] MEDS: DOCUSATE SODIUM 100 MG CAPSULE PO SCH (10:22)
--- NOTE | 2018-09-16 10:23 | PDOC PROGRESS REPORT ---
Subjective-OB Progress Note for:: 09/16/18 Subjective: Ready to go home. Physical Exam (OB) Vital Signs: Temp Pulse Resp BP Pulse Ox 98.3 F 79 18 117/76 99 09/16/18 09:17 09/16/18 09:17 09/16/18 09:17 09/16/18 09:17 09/16/18 09:17 Intake & Output 09/15/18 09/16/18 09/17/18 06:59 06:59 06:59 Intake Total 1000 1000 Balance 1000 1000 - PIH/Pre-Eclampsia DTR's: 2 + Clonus: Negative Headache: Absent Epigastric Pain: No Visual Changes: No - Lochia Lochia Amount: Scant < 10 ml Lochia Color: Serosa/Brown - Abdomen Description: Soft Hernia Present: No Bowel Sounds: Normoactive Flatus Presence: Present Stool: Yes Fundal Description: Firm, Midline Fundal Height: u/u - u/2 Objective-Diagnostic Laboratory: 09/15/18 06:01 Assessment and Plan(PN) - Time Spent with Patient Medications reviewed and adjusted accordingly: Yes - Disposition Anticipated Discharge: Home
--- NOTE | 2018-09-16 10:28 | PDOC DISCHARGE SUMMARY ---
Final Diagnosis Discharge Date: 09/16/18 - Final Diagnosis (1) Delivery normal Is this a current diagnosis for this admission?: Yes (2) Hyperthyroidism Is this a current diagnosis for this admission?: Yes (3) Is this a current diagnosis for this admission?: Yes Discharge Data - Discharge Medication Home Medications: Vit No.130/Iron/Folic [ Tablet] 1 each PO DAILY 09/10/18 Gestational Age: 38.1 wks Reason(s) for Admission: Onset of Labor Procedures: Ultrasound Intrapartum Procedure(s): Spontaneous Vaginal Delivery - Data Baby 1 Female at 1 minute: 8 at 5 minutes: 9 Weight: 3.26 kg Home with Mother: Yes Complications: No - Diagnosis Test Laboratory: Temp Pulse Resp BP Pulse Ox 98.3 F 79 18 117/76 99 09/16/18 09:17 09/16/18 09:17 09/16/18 09:17 09/16/18 09:17 09/16/18 09:17 09/14/18 09/14/18 09/15/18 01:00 02:29 06:01 RBC 4.19 3.87 Hgb 12.0 11.0 L Hct 36.2 33.1 L Urine Opiates Screen NEGATIVE - Discharge information/Instructions Discharge Activity: Activity As Tolerated, Balance Activity w/Rest, Pelvic Rest, Slowly Increase Activity, No tub bath Discharge Diet: Regular Disposition: HOME, SELF-CARE Follow up with: [facility] in: 4, Weeks
== END 2018-09-16 12:35 | disposition home or self-care (01) | DRG 807 ==
LOC: LC 00:56 → LR 01:16 → 2S 04:00
PROVIDERS: ADMIT Obstetrics & Gynecology; ATTEND Obstetrics & Gynecology
PROC: 10E0XZZ Delivery of Products of Conception, External Approach (ICD-10-PCS; principal; 2018-09-14)
DX: O62.3 Precipitate labor (principal); Z37.0 Single live birth; O99.284 Endocrine, nutritional and metabolic diseases complicating childbirth; E05.90 Thyrotoxicosis, unspecified without thyrotoxic crisis or storm; Z3A.38 38 weeks gestation of pregnancy
CPT/HCPCS: 36415; 80307; 81005; 85025; 85027; 86592; 86850; 86900; 86901; 87491; 87591; J2540; J2590; J3490

== ENCOUNTER 2018-11-15 08:47 | Day surgery (SDC) | payer BC ==
[2018-11-10 11:11] LABS: HEMATOCRIT 40.1 % (36.0-47.0); HEMOGLOBIN 13.2 g/dL (12.0-15.5); MEAN CORPUSCULAR HEMOGLOBIN 28.3 pg (27.0-33.4); MEAN CORPUSCULAR HGB CONC 32.8 g/dL (32.0-36.0); MEAN CORPUSCULAR VOLUME 86 fl (80-97); PLATELET COUNT 239 10^3/uL (150-450); RED BLOOD COUNT 4.65 10^6/uL (3.72-5.28); RED CELL DISTRIBUTION WIDTH 14.3 % (11.5-14.0); WHITE BLOOD COUNT 4.9 10^3/uL (4.0-10.5)
[2018-11-10 11:19] LABS: APPEARANCE,URINE CLEAR; BILIRUBIN,URINE NEGATIVE (NEGATIVE); COLOR,URINE YELLOW; GLUCOSE, URINE NEGATIVE (NEGATIVE); KETONES,URINE NEGATIVE (NEGATIVE); LEUKOCYTE ESTERASE,URINE NEGATIVE (NEGATIVE); NITRITE,URINE NEGATIVE (NEGATIVE); PROTEIN,URINE NEGATIVE (NEGATIVE); URINE SPECIFIC GRAVITY 1.016; UROBILINOGEN,URINE NEGATIVE mg/dL (<2.0)
[~2018-11-15 08:47] MED LIST: LACTATED RINGERS 1000 ML IV PRN
[2018-11-15] MEDS ORDERED: MIDAZOLAM 2 MG/2 ML INJ ONE (09:42)
[2018-11-15] MEDS ORDERED: PROPOFOL INJ 200 MG/20 ML VIAL IV ONE (09:42)
[2018-11-15] MEDS ORDERED: FENTANYL CITRATE INJ/PF 100 MCG/2 ML AMPUL ONE (09:42)
[2018-11-15] MEDS ORDERED: PROMETHAZINE HCL INJ 25 MG/1 ML VIAL IV PRN ×2 (10:19)
[2018-11-15] MEDS ORDERED: FENTANYL CITRATE INJ/PF 100 MCG/2 ML AMPUL IV PRN ×3 (10:19)
[2018-11-15] MEDS ORDERED: DIPHENHYDRAMINE HCL 50 MG/ML VIAL IV PRN (10:19)
[2018-11-15] MEDS ORDERED: MEPERIDINE HCL/PF INJ 25 MG/1 ML DISP.SYRIN IV PRN (10:19)
--- NOTE | 2018-11-15 10:30 | RADIOLOGY REPORT (SQ) ---
EXAM DESCRIPTION: CHEST SINGLE VIEW COMPLETED DATE/TIME: 11/15/2018 10:10 am REASON FOR STUDY: pre op COMPARISON: None. EXAM PARAMETERS: NUMBER OF VIEWS: One view. TECHNIQUE: Single frontal radiographic view of the chest acquired. RADIATION DOSE: NA LIMITATIONS: None. FINDINGS: LUNGS AND PLEURA: No opacities, masses or pneumothorax. No pleural effusion. MEDIASTINUM AND HILAR STRUCTURES: No masses. Contour normal. HEART AND VASCULAR STRUCTURES: Borderline cardiomegaly suggested. Normal vasculature. BONES: No acute findings. HARDWARE: None in the chest. OTHER: No other significant finding. IMPRESSION: 1. NO ACUTE RADIOGRAPHIC FINDING IN THE CHEST. 2. Borderline cardiomegaly suggested. TECHNICAL DOCUMENTATION: JOB ID: [id number] [employer]- All Rights Reserved Reading location - IP/workstation name: [email or web address]
[2018-11-15] MEDS ORDERED: IBUPROFEN 800 MG TABLET PO PRN (10:47)
[2018-11-15] MEDS ORDERED: RINGERS SOLUTION,LACTATED 1,000 ML IV PRN (10:47)
[2018-11-15] MEDS ORDERED: OXYCODONE-ACETAMINOPHEN 5-325 MG TABLET PO PRN ×2 (10:47)
[2018-11-15] MEDS ORDERED: KETOROLAC TROMETHAMINE INJ/PF 30 MG/1 ML SDV IV PRN (10:47)
--- NOTE | 2018-11-15 10:51 | Operative Report ---
Operative Report DATE OF SURGERY: 11/15/18 PREOPERATIVE DIAGNOSIS: Patient desires tubal ligation with fulguration POSTOPERATIVE DIAGNOSIS: Same OPERATION: Laparoscopic tubal fulguration bilateral SURGEON: JUAN KANG ANESTHESIA: GA TISSUE REMOVED OR ALTERED: Fallopian tubes COMPLICATIONS: None ESTIMATED BLOOD LOSS: 5 cc INTRAOPERATIVE FINDINGS: Normal uterus tubes and ovaries PROCEDURE: Patient was taken the OR and placed in supine position. General anesthesia was induced. She was placed in the dorsolithotomy position using Ulises stirrups. Her perineum vagina and abdomen were prepared and draped in sterile fashion. Her bladder was drained with a red rubber catheter. An incision was made at the umbilicus. Natural umbilical defect was identified and dilated with Merlene clamp. This allowed placement of a blunt port. Laparoscopy confirmed appropriate placement and the abdomen was insufflated with CO2 gas. Each fallopian tube was identified and followed out to its fimbriated end and then cauterized with the Kleppinger device starting at the mid isthmic portion and moving toward the uterine cornu with 5 successive bites. This was done bilaterally. There was no bleeding. Pictures were taken. The gas was allowed to escape from the abdomen. The port and scope were removed at the same time. The fascia at the umbilicus was closed with a 2-0 Vicryl stitch and skin closed with 4-0 undyed Vicryl stitch. Sponge stick was removed from the vagina at the end of the case.
--- NOTE | 2018-11-15 10:53 | Discharge Summary ---
Discharge Summary (SDC) - Discharge Final Diagnosis: Patient desires tubal ligation Date of Surgery: 11/15/18 Discharge Date: 11/15/18 Condition: Good Prescriptions: Oxycodone HCl/Acetaminophen [Percocet 5-325 mg Tablet] 1 tab PO Q4HP PRN #30 tablet PRN Reason: Referrals: YEIMI WORKMAN PA-C [Primary Care Provider] - Discharge Diet: Regular Discharge Activity: Activity As Tolerated, Pelvic Rest Report the Following to Your Physician Immediately: Fever over 101 Degrees, Unusual Bleeding
[2018-11-15] MEDS ORDERED: METOCLOPRAMIDE HCL INJ/PF 10 MG/2 ML SDV ONE (11:22)
[2018-11-15] MEDS ORDERED: OXYCODONE-ACETAMINOPHEN 5-325 MG TABLET ONE (11:52)
[2018-11-15 13:36] VITALS: BP 131/90
[2018-11-15] MEDS ORDERED: KETOROLAC TROMETHAMINE 60 MG/2 ML SDV ONE (14:40)
[2018-11-15] MEDS ORDERED: NEOSTIGMINE METHYLSULFATE 10 MG/10 ML VIAL ONE (14:40)
[2018-11-15] MEDS ORDERED: GLYCOPYRROLATE 1 MG/5 ML VIAL ONE (14:40)
[2018-11-15] MEDS ORDERED: LIDOCAINE 2% INJ-PF (20 MG/ML) 2 ML AMPUL ONE (14:40)
[2018-11-15] MEDS ORDERED: ROCURONIUM BROMIDE INJ 50 MG/5 ML VIAL IV ONE (14:40)
[2018-11-15] MEDS ORDERED: ONDANSETRON HCL INJ/PF 4 MG/2 ML SDV ONE (14:40)
[2018-11-15] MEDS ORDERED: DEXAMETHASONE SOD PHOSPHATE INJ 4 MG/1 ML VIAL ONE (14:40)
== END 2018-11-15 12:45 | disposition home or self-care (01) ==
LOC: OROUT 08:47
PROVIDERS: ATTEND Obstetrics & Gynecology
DX: Z30.2 Encounter for sterilization (principal)
CPT/HCPCS: 36415; 85027; 81005; 81025; 71045; 00851; 58670; J2250; J3490 ×3; J1100; J1885; J3010; J2710; J2405; J2704; 851; J2765